=== PATIENT | male | born 1950 | race Caucasian/White ===

== ENCOUNTER 2019-12-17 13:35 | Emergency (ER) | payer MEDICAID, MEDICARE ==
[~2019-12-17] VITALS: Ht 170.2 cm; Wt 72.5 kg
[~2019-12-17 13:35] MED LIST: AMX500CIP PO; BETH25TA PO; CEFP250T2 PO; DOXY100C2 PO; HYDR1TAB8 OP; KCL20TCR PO; Lisinopril PO; METF500T8 PO; METH4TAB PO; MMT17NA NS; Metoclopramide Hcl PO; Tamsulosin Hcl PO
[2019-12-17] MEDS ORDERED: HYDROcodone/APAP 5 MG/325 MG (LORTAB) TAB PO ONE (13:45)
--- NOTE | 2019-12-17 13:47 | ED Fall/Injury ---
General Stated Complaint: FALL Source: patient, EMS Exam Limitations: no limitations History of Present Illness Date Seen by Provider: Dec 17, 2019 Time Seen by Provider: 13:42 Initial Comments To ER per EMS from home in [place]. He is wheelchair bound due to polio. He was being pushed in his wheelchair today, they encountered a curb which caused a sudden stop of the wheelchair and he fell forward out of the wheelchair complains of left ankle pain and bilateral knee pain. The left ankle became entangled in the wheelchair somehow twisting beneath him. Did not hit his head and denies any other pains or injury. Occurred: just prior to arrival Severity: moderate Injuries/Pain Location: lower extremity Context: other (fell) Loss of Consciousness: no loss of consciousness Modifying Factors: Worse With Movement Allergies and Home Medications Allergies Coded Allergies: aspirin (Verified Allergy, Unknown, 12/17/19) Home Medications Amoxicillin 500 Mg Cap, 500 MG PO TID Prescribed by: SAMIRA ARIAS on 10/10/141208 Bethanechol Chl 25 Mg Tab, 50 MG PO ACHS Prescribed by: SAMIRA ARIAS on 10/10/141208 Metformin Hcl 500 Mg Tab.sr.24h, 1 EACH PO BID WITH MEALS Prescribed by: SAMIRA ARIAS on 10/10/141208 Oxycodone HCl/Acetaminophen 1 Each Tablet, 1 TAB PO Q4H PRN for PAIN-MODERATE (5-7) Prescribed by: MAIKEL PAINTING on 12/17/19 1438 Potassium Chloride 20 Meq Tab, 20 MEQ PO BID Prescribed by: SAMIRA ARIAS on 10/10/141208 [Lisinopril] 10 MG TAB, 10 MG PO DAILY Prescribed by: SAMIRA ARIAS on 10/10/141208 [Metoclopramide Hcl] 10 MG TAB, 10 MG PO ACHS Prescribed by: SAMIRA ARIAS on 10/10/14 120 [Tamsulosin Hcl] 0.4 MG CAP, 0.4 MG PO DAILY@1800 Prescribed by: SAMIRA ARIAS on 10/10/141208 Patient Home Medication List Home Medication List Reviewed: Yes Review of Systems Review of Systems Constitutional: see HPI Eyes: No Symptoms Reported Ears, Nose, Mouth, Throat: no symptoms reported Respiratory: no symptoms reported Cardiovascular: no symptoms reported Genitourinary: no symptoms reported Musculoskeletal: see HPI, joint pain Skin: no symptoms reported Psychiatric/Neurological: No Symptoms Reported Past Mfvvncv-Etwoyl-Zudexh Hx Patient Social History Recent Foreign Travel: No Contact w/Someone Who Travel: No Immunizations Up To Date Date of Pneumonia Vaccine: Oct 10, 2014 Date of Influenza Vaccine: Oct 10, 2014 Past Medical History Orthopedic Hypertension Reproductive Disorders: No Diabetes, Non-Insulin dep Adverse Reaction/Blood Tranf: No Family Medical History Cervical cancer Physical Exam Vital Signs Vital Signs - First Documented 12/17/19 13:35 Temp 36.7 Pulse 77 Resp 20 B/P (MAP) 205/126 (152) Pulse Ox 100 O2 Delivery Room Air Capillary Refill : Height, Weight, BMI Height: 5'7.00" Weight: 188lbs. 6.0oz. 85.731120dc; BMI Method:Stated General Appearance: WD/WN, no apparent distress HEENT: PERRL/EOMI, normal ENT inspection Neck: non-tender, full range of motion Respiratory: no respiratory distress, no accessory muscle use Gastrointestinal: normal bowel sounds, non tender Extremities: No swelling; other (atrophy bilateral lower extremities) Neurologic/Psychiatric: alert, normal mood/affect, oriented x 3 Skin: normal color, warm/dry Stephanie Coma Score Best Eye Response: (4) Open Spontaneously Best Verbal Response: (5) Oriented Best Motor Response: (6) Obeys Commands [place] Total: 15 Progress/Results/Core Measures Results/Orders My Orders Orders - MAIKEL PAINTING APRN Hydrocodone/Apap 5/325 Tablet (Lortab 5 (12/17/19 13:45) Knee, 3 Views, Bilateral (12/17/19 13:39) Ankle, Left, 3 Views (12/17/19 13:39) Medications Given in ED Current Medications Medications Dose Ordered Sig/Tony Route Start Time Stop Time Status Last Admin Dose Admin Acetaminophen/ Hydrocodone Bitart 1 tab ONCE ONCE PO 12/17/19 13:45 12/17/19 13:46 DC 12/17/19 13:48 1 TAB Vital Signs/I&O 12/17/19 13:35 Temp 36.7 Pulse 77 Resp 20 B/P (MAP) 205/126 (152) Pulse Ox 100 O2 Delivery Room Air Diagnostic Imaging Diagonstic Imaging: Xray Comments NAME: SOLEDAD GILBERT MED REC#: [id number] PT STATUS: REG ER : 1950 PHYSICIAN: MAIKEL PAINTING APRN ADMIT DATE: 12/17/19/ER Draft Date of Exam:12/17/19 ANKLE, LEFT, 3 VIEWS INDICATION: Wheelchair bound. Injury with pain. FINDINGS: There is an acute appearing fracture of the distal tibia. In the oblique views it appears to extend through the articular surface where it was nondepressed and nondisplaced at the tibial plafond. The fracture is somewhat spiral in its morphology with its most cephalad component at the posterior cortex about 6.3 cm above the level of the articular surface. This patient's bones are profoundly osteoporotic. The distal fibula is intact. There are arthritic changes to the ankle, hind and visualized midfoot. No other fracture could be identified. IMPRESSION: A distal tibial fracture with suspicion for nondepressed intra-articular extension. No significant angulation. There is underlying severe osteoporosis which could obscure additional nondisplaced fractures, no other injury is apparent. Dictated on workstation # [id number] Dict: 12/17/19 143 Trans: 12/17/19 1442 [facility] [id number] Interpreted by: ROSA ALVARADO Electronically signed by: NAME: SOLEDAD GILBERT [facility] REC#: [id number] PT STATUS: REG ER : 1950 PHYSICIAN: MAIKEL PAINTING APRN ADMIT DATE: 12/17/19/ER Draft Date of Exam:12/17/19 KNEE, 3 VIEWS, BILATERAL INDICATION: Pain. COMPARISON: None available. TECHNIQUE: Six radiographs of the bilateral knees dated December 17, 2019. FINDINGS: Severe diffuse osseous demineralization. No acute fracture or dislocation. No destructive osseous process. Mild medial and lateral joint space narrowing is noted within the bilateral knees. No significant knee joint effusion. Scattered vascular calcifications. IMPRESSION: No acute fracture. Severe osseous demineralization felt to relate to nonweightbearing status. Dictated on workstation # [id number] Dict: 12/17/19 143 Trans: 12/17/19 143 [id number] Interpreted by: TIM MÉNDEZ MD Electronically signed by: Departure Communication (Admissions) Patient placed in a posterior short leg and stirrup style splint. This should be sufficient since he is nonweightbearing per baseline due to his polio. Impression Primary Impression: Tibia fracture Qualified Codes: S82.302A - Unspecified fracture of lower end of left tibia, initial encounter for closed fracture Disposition: HOME, SELF-CARE Condition: Stable Departure-Patient Inst. Decision time for Depature: 14:37 Referrals: NO,LOCAL PHYSICIAN (PCP) Primary Care Physician AKUA SURESH MD, MICHAEL P MD Patient Instructions: Ankle Fracture Add. Discharge Instructions: 1. Keep the splint on at all times until you follow up with orthopedics. As will be a couple of weeks. Take medication as directed. Follow-up with your doctor next week. Scripts Oxycodone HCl/Acetaminophen (Percocet 5-325 mg Tablet) 1 Each Tablet 1 TAB PO Q4H PRN for PAIN-MODERATE (5-7) MDD 6 TABS for 7 Days, #30 TAB Prov: MAIKEL PAINTING APRN 12/17/19 MAIKEL PAINTING APRN Dec 17, 2019 13:47
[2019-12-17] MEDS ORDERED: OXYC1TAB87 PO (14:38)
--- NOTE | 2019-12-17 14:40 | Diagnostic Imaging Report ---
INDICATION: Pain. COMPARISON: None available. TECHNIQUE: Six radiographs of the bilateral knees dated December 17, 2019. FINDINGS: Severe diffuse osseous demineralization. Slight cortical irregularity is noted involving the left distal femoral shaft though no definite discrete fracture plane is identified. Otherwise, No acute fracture or dislocation. No destructive osseous process. Mild medial and lateral joint space narrowing is noted within the bilateral knees. No significant knee joint effusion. Scattered vascular calcifications. IMPRESSION: Cortical irregularity associated with the distal left femoral shaft. This could relate to a chronic healed fracture deformity. No definitive fracture plane is identified; however, if pain is referable to the distal left femur, then dedicated radiographs of the left femur will be recommended as the cortical irregularity is not completely included within the [id number]-em-cdrg. Severe osseous demineralization felt to relate to nonweightbearing status. This severe osseous demineralization decreases the sensitivity for underlying fractures. Report was called to Oziel Guzmán APRN at 3:53 p.m., by josh (for BEATA). Dictated by: Dictated on workstation # [id number]
--- NOTE | 2019-12-17 14:42 | Diagnostic Imaging Report ---
INDICATION: Wheelchair bound. Injury with pain. FINDINGS: There is an acute appearing fracture of the distal tibia. In the oblique views it appears to extend through the articular surface where it was nondepressed and nondisplaced at the tibial plafond. The fracture is somewhat spiral in its morphology with its most cephalad component at the posterior cortex about 6.3 cm above the level of the articular surface. This patient's bones are profoundly osteoporotic. The distal fibula is intact. There are arthritic changes to the ankle, hind and visualized midfoot. No other fracture could be identified. IMPRESSION: A distal tibial fracture with suspicion for nondepressed intra-articular extension. No significant angulation. There is underlying severe osteoporosis which could obscure additional nondisplaced fractures, no other injury is apparent. Dictated by: Dictated on workstation # [id number]
[2019-12-17 15:24] VITALS: BP 184/120
== END 2019-12-17 15:24 | disposition home or self-care (01) ==
LOC: EDUNIT# 13:35 → ER 13:36
DX: S82.302A Unspecified fracture of lower end of left tibia, initial encounter for closed fracture (principal); E11.9 Type 2 diabetes mellitus without complications; I10 Essential (primary) hypertension; R40.2142 Coma scale, eyes open, spontaneous, at arrival to emergency department; R40.2252 Coma scale, best verbal response, oriented, at arrival to emergency department; R40.2362 Coma scale, best motor response, obeys commands, at arrival to emergency department; Z80.49 Family history of malignant neoplasm of other genital organs; Z99.3 Dependence on wheelchair; Z86.12 Personal history of poliomyelitis; Z88.6 Allergy status to analgesic agent; Z79.84 Long term (current) use of oral hypoglycemic drugs; V00.811A Fall from moving wheelchair (powered), initial encounter
CPT/HCPCS: 29515; 73610

== ENCOUNTER 2020-03-23 13:44 | Emergency (ER) | payer MEDICARE ==
[~2020-03-23] VITALS: Ht 167 cm; Wt 72.0 kg
[~2020-03-23 13:44] MED LIST changes: +CEFD300C3 PO; +LISI10TA2 PO; +OXYC1TAB87 PO; +TMSL.4C PO; +[UNRECOGNIZED DRUG - CODE] MC
--- NOTE | 2020-03-23 13:54 | ED Neurological Problem ---
General Stated Complaint: DIZZINESS Source: patient, EMS Exam Limitations: no limitations History of Present Illness Date Seen by Provider: Mar 23, 2020 Time Seen by Provider: 13:50 Initial Comments 69-year-old male presents because last night reports he had some slurred spaces now resolved. Patient feels that last night he had difficulty understanding his when she was visiting with him. Patient reports for the most part his symptoms have resolved. He does state that maybe is a little foggy this morning but no real focal complaints or concerns. Patient reports he had a recent urinary tract infection which she was treated for. Patient otherwise has no other recent illnesses, cough, nausea, vomiting, focal weakness. Patient does have paralysis of his lower extremities due to polio as a child Allergies and Home Medications Allergies Coded Allergies: aspirin (Verified Allergy, Unknown, 12/17/19) Home Medications Cefdinir 300 Mg Capsule, 300 MG PO BID Prescribed by: YURIY VALLE on 03/14/20 1316 Lisinopril 10 Mg Tablet, 10 MG PO DAILY Prescribed by: YURIY VALLE on 03/14/20 1316 Tamsulosin HCl 0.4 Mg Cap, 0.4 MG PO DAILY@1800 Prescribed by: YURIY VALLE on 03/14/20 1316 Patient Home Medication List Home Medication List Reviewed: Yes Review of Systems Review of Systems Constitutional: No chills, No fever Eyes: No Symptoms Reported Ears, Nose, Mouth, Throat: see HPI Respiratory: No cough, No short of breath Cardiovascular: No chest pain, No palpitations Gastrointestinal: no symptoms reported; No abdominal pain, No nausea, No vomiting Genitourinary: no symptoms reported Musculoskeletal: no symptoms reported Skin: no symptoms reported Psychiatric/Neurological: See HPI Past Bcmdrsg-Cboiou-Eecwei Hx Past Med/Social Hx: Reviewed Nursing Past Med/Soc Hx Patient Social History Drug of Choice: POT, AMPHETAMINES 2nd Hand Smoke Exposure: No Immunizations Up To Date Date of Pneumonia Vaccine: Oct 10, 2014 Date of Influenza Vaccine: Oct 10, 2014 Past Medical History Surgeries: Yes (HERNIA) Orthopedic Respiratory: No Cardiac: Yes Hypertension Neurological: No Reproductive Disorders: No Gastrointestinal: No Musculoskeletal: Yes (POLIO) Endocrine: Yes Diabetes, Non-Insulin dep Cancer: No Psychosocial: No Integumentary: No Blood Disorders: No Adverse Reaction/Blood Tranf: No Family Medical History Cervical cancer Physical Exam Vital Signs Vital Signs - First Documented 03/23/20 13:56 Temp 36.6 Pulse 73 Resp 18 B/P (MAP) 138/68 (91) Pulse Ox 100 O2 Delivery Room Air Capillary Refill : Height, Weight, BMI Height: 5'7.00" Weight: 188lbs. 6.0oz. 85.032936pl; 25.06 BMI Method:Stated General Appearance: WD/WN, no apparent distress HEENT: PERRL/EOMI Neck: full range of motion Respiratory: lungs clear, normal breath sounds Cardiovascular: normal peripheral pulses, regular rate, rhythm Gastrointestinal: non tender, soft Extremities: other (no acute changes) Neurologic/Psychiatric: alert, normal mood/affect, oriented x 3, other (patient with chronic bilateral lower extremity paralysis with no acute changes) Motor/Sensory: other (no acute weakness, no cerebellar deficits) Skin: normal color, warm/dry Progress/Results/Core Measures Results/Orders Lab Results Laboratory Tests Test 03/23/20 13:50 03/23/20 14:20 03/23/20 14:50 Range/Units White Blood Count 7.9 4.3-11.0 10^3/uL Red Blood Count 3.56 L 4.35-5.85 10^6/uL Hemoglobin 10.4 L 13.3-17.7 G/DL Hematocrit 33 L 40-54 % Mean Corpuscular Volume 92 80-99 FL Mean Corpuscular Hemoglobin 29 25-34 PG Mean Corpuscular Hemoglobin Concent 32 32-36 G/DL Red Cell Distribution Width 15.2 H 10.0-14.5 % Platelet Count 251 130-400 10^3/uL Mean Platelet Volume 9.2 7.4-10.4 FL Neutrophils (%) (Auto) 73 42-75 % Lymphocytes (%) (Auto) 18 12-44 % Monocytes (%) (Auto) 6 0-12 % Eosinophils (%) (Auto) 2 0-10 % Basophils (%) (Auto) 0 0-10 % Neutrophils # (Auto) 5.7 1.8-7.8 X 10^3 Lymphocytes # (Auto) 1.5 1.0-4.0 X 10^3 Monocytes # (Auto) 0.5 0.0-1.0 X 10^3 Eosinophils # (Auto) 0.2 0.0-0.3 10^3/uL Basophils # (Auto) 0.0 0.0-0.1 10^3/uL Prothrombin Time 13.3 12.2-14.7 SEC INR Comment 1.0 0.8-1.4 Activated Partial Thromboplast Time 32 24-35 SEC D-Dimer 0.79 H 0.00-0.49 UG/ML Sodium Level 139 135-145 MMOL/L Potassium Level 4.5 3.6-5.0 MMOL/L Chloride Level 111 H 98-107 MMOL/L Carbon Dioxide Level 19 L 21-32 MMOL/L Anion Gap 9 5-14 MMOL/L Blood Urea Nitrogen 39 H 7-18 MG/DL Creatinine 1.26 0.60-1.30 MG/DL Estimat Glomerular Filtration Rate 57 BUN/Creatinine Ratio 31 Glucose Level 133 H 70-105 MG/DL Calcium Level 8.2 L 8.5-10.1 MG/DL Corrected Calcium 8.4 L 8.5-10.1 MG/DL Total Bilirubin 0.1 0.1-1.0 MG/DL Aspartate Amino Transf (AST/SGOT) 17 5-34 U/L Alanine Aminotransferase (ALT/SGPT) 15 0-55 U/L Alkaline Phosphatase 90 40-136 U/L Troponin I < 0.028 <0.028 NG/ML Total Protein 7.3 6.4-8.2 GM/DL Albumin 3.8 3.2-4.5 GM/DL Urine Color YELLOW Urine Clarity CLEAR Urine pH 6.0 5-9 Urine Specific [place] 1.020 1.016-1.022 Urine Protein 1+ H NEGATIVE Urine Glucose (UA) TRACE H NEGATIVE Urine Ketones NEGATIVE NEGATIVE Urine Nitrite NEGATIVE NEGATIVE Urine Bilirubin NEGATIVE NEGATIVE Urine Urobilinogen 0.2 < = 1.0 MG/DL Urine Leukocyte Esterase NEGATIVE NEGATIVE Urine RBC (Auto) TRACE-I NEGATIVE Urine RBC 2-5 H /HPF Urine WBC 2-5 /HPF Urine Crystals PRESENT H /LPF Urine Amorphous Sediment RARE ANA URATES H /LPF Urine Bacteria NEGATIVE /HPF Urine Casts NONE /LPF Urine Mucus NEGATIVE /LPF Urine Culture Indicated NO Glucometer 131 H 70-110 MG/DL My Orders Orders - HARRISON,SHIRLEY L DO Cbc With Automated Diff (03/23/20 13:54) Protime With Inr (03/23/20 13:54) Partial Thromboplastin Time (03/23/20 13:54) Comprehensive Metabolic Panel (03/23/20 13:54) Fibrin Degradation Products (03/23/20 13:54) Troponin I (03/23/20 13:54) Ua Culture If Indicated (03/23/20 13:54) Chest 1 View, Ap/Pa Only (03/23/20 13:54) Ekg Tracing (03/23/20 13:54) Accucheck Stat ONCE (03/23/20 13:54) Ed Iv/Invasive Line Start (03/23/20 13:54) Vital Signs Stroke Patient Q15M (03/23/20 13:54) Ct Head Wo-R/O Stroke (03/23/20 13:54) O2 (03/23/20 13:54) Monitor-Rhythm Ecg Trace Only (03/23/20 13:54) Dysphagia Screening Tool (03/23/20 13:54) Lipid Panel (03/24/20 06:00) Vital Signs/I&O 03/23/20 03/23/20 03/23/20 13:56 14:51 14:52 Temp 36.6 Pulse 73 76 Resp 18 16 B/P (MAP) 138/68 (91) 138/88 Pulse Ox 100 99 99 O2 Delivery Room Air Room Air Diagnostic Imaging Diagonstic Imaging: CT Plain Films/CT/US/NM/MRI: head Comments [facility], [place] NAME: NADEEM GILBERT [facility] REC#: [id number] PT STATUS: REG ER : 1950 PHYSICIAN: SHIRLEY HARRISON DO ADMIT DATE: 03/23/20/ER Draft Date of Exam:03/23/20 CT HEAD WO-R/O STROKE PROCEDURE: CT head wo r/o stroke. TECHNIQUE: Multiple contiguous axial images were obtained through the brain without the use of intravenous contrast. Auto Exposure Controls were utilized during the CT exam to meet ALARA standards for radiation dose reduction. INDICATION: Confusion with slurred speech, symptoms have resolved. COMPARISON: I have no previous for direct comparison. FINDINGS: There is encephalomalacia consistent with an old infarct in the right temporal lobe anteroinferiorly. No sulcal effacement. No findings suggestive of cerebral edema. There is mild cerebral cortical atrophy without nadeem hydrocephalus. There is periventricular white matter hypodensity nonspecific but typically associated with the sequelae of chronic small vessel disease. There are intracranial atherosclerotic vascular calcifications involving the carotids greater than vertebrobasilar. No evidence for elevated intracerebral pressures. There is no hemorrhage. 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 Atrophy and white matter disease as well as atherosclerosis, but no hemorrhage, edema, or acute-appearing abnormalities Departure Impression Primary Impression: Transient disorientation Disposition: 01 HOME, SELF-CARE Condition: Stable Departure-Patient Inst. Referrals: NO,LOCAL PHYSICIAN (PCP/Family) Primary Care Physician Patient Instructions: Delirium (Confusion) Add. Discharge Instructions: Emergency department focuses on treating and ruling out life-threatening diseases. Whenever possible, a diagnosis is given. However, most patients are given an impression based on their history, physical exam, and workup during your brief time in the ER. Information about probable diagnosis and other educational material has been provided. Please take the time to read and understand this information. It is very important that you follow up with a physician as discussed during the visit today. Failure to adhere to your follow-up instructions may lead to severe disability, injury, or so please make sure to keep your appointments or obtain one as requested. Please keep in mind the emergency department is not designed to your primary care or "family doctor" and nonurgent issues are best evaluated by an outpatient physician SHIRLEY HARRISON DO Mar 23, 2020 13:54
[2020-03-23 14:02] LABS: BASOPHILS % (AUTO) 0 % (0-10); EOSINOPHILS # (AUTO) 0.2 10^3/uL (0.0-0.3); EOSINOPHILS % (AUTO) 2 % (0-10); HEMATOCRIT 33 % (40-54); HEMOGLOBIN 10.4 G/DL (13.3-17.7); LYMPHOCYTES # (AUTO) 1.5 X 10^3 (1.0-4.0); LYMPHOCYTES % (AUTO) 18 % (12-44); MEAN CORPUSCULAR HEMOGLOBIN 29 PG (25-34); MEAN CORPUSCULAR HGB CONC 32 G/DL (32-36); MEAN CORPUSCULAR VOLUME 92 FL (80-99); MEAN PLATELET VOLUME 9.2 FL (7.4-10.4); MONOCYTES # (AUTO) 0.5 X 10^3 (0.0-1.0); MONOCYTES % (AUTO) 6 % (0-12); NEUTROPHILS # (AUTO) 5.7 X 10^3 (1.8-7.8); NEUTROPHILS % (AUTO) 73 % (42-75); PLATELET COUNT 251 10^3/uL (130-400); RED CELL DISTRIBUTION WIDTH 15.2 % (10.0-14.5); WHITE BLOOD COUNT 7.9 10^3/uL (4.3-11.0)
[2020-03-23 14:09] LABS: ALBUMIN 3.8 GM/DL (3.2-4.5); CHLORIDE 111 MMOL/L (98-107); POTASSIUM 4.5 MMOL/L (3.6-5.0); SODIUM 139 MMOL/L (135-145)
[2020-03-23 14:10] LABS: CALCIUM 8.2 MG/DL (8.5-10.1)
[2020-03-23 14:11] LABS: GLUCOSE 133 MG/DL (70-105)
[2020-03-23 14:12] LABS: TOTAL PROTEIN 7.3 GM/DL (6.4-8.2)
[2020-03-23 14:13] LABS: BILIRUBIN,TOTAL 0.1 MG/DL (0.1-1.0); CARBON DIOXIDE 19 MMOL/L (21-32)
[2020-03-23 14:15] LABS: ALKALINE PHOSPHATASE 90 U/L (40-136); CREATININE SERUM 1.26 MG/DL (0.60-1.30); GFR ESTIMATED 57
[2020-03-23 14:16] LABS: BUN/CREATININE RATIO 31
[2020-03-23 14:18] LABS: ALANINE AMINOTRANSFERASE 15 U/L (0-55)
[2020-03-23 14:28] LABS: BILIRUBIN,URINE NEGATIVE (NEGATIVE); CLARITY,URINE CLEAR; COLOR,URINE YELLOW; GLUCOSE, URINE (UA) TRACE (NEGATIVE); KETONES,URINE NEGATIVE (NEGATIVE); LEUKOCYTE ESTERASE ,URINE NEGATIVE (NEGATIVE); NITRITE,URINE NEGATIVE (NEGATIVE); PROTEIN,URINE 1+ (NEGATIVE)
[2020-03-23 14:43] LABS: FIBRIN DEGRADATION PRODUCTS 0.79 UG/ML (0.00-0.49); PROTHROMBIN TIME PATIENT 13.3 SEC (12.2-14.7)
[2020-03-23 14:51] VITALS: BP 138/88
--- NOTE | 2020-03-23 14:53 | Diagnostic Imaging Report ---
INDICATION: Confusion, slurred speech COMPARISON: 03/10/2020 TECHNIQUE: Single radiograph of the chest dated 03/23/2020. FINDINGS: The cardiac silhouette is enlarged, though stable. No significant pulmonary vascular congestion. The lungs are hyperinflated with flattening of the diaphragm. The lungs are clear of focal pulmonary opacity. No pleural effusion. No pneumothorax. Severe apex right curvature of the spine is noted. IMPRESSION: Cardiomegaly without overt congestive heart failure. 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 Dictated by: Dictated on workstation # [id number]
--- NOTE | 2020-03-23 15:02 | Diagnostic Imaging Report ---
PROCEDURE: CT head wo r/o stroke. TECHNIQUE: Multiple contiguous axial images were obtained through the brain without the use of intravenous contrast. Auto Exposure Controls were utilized during the CT exam to meet ALARA standards for radiation dose reduction. INDICATION: Confusion with slurred speech, symptoms have resolved. COMPARISON: I have no previous for direct comparison. FINDINGS: There is encephalomalacia consistent with an old infarct in the right temporal lobe anteroinferiorly. No sulcal effacement. No findings suggestive of cerebral edema. There is mild cerebral cortical atrophy without nadeem hydrocephalus. There is periventricular white matter hypodensity nonspecific but typically associated with the sequelae of chronic small vessel disease. There are intracranial atherosclerotic vascular calcifications involving the carotids greater than vertebrobasilar. No evidence for elevated intracerebral pressures. There is no hemorrhage. 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 Atrophy and white matter disease as well as atherosclerosis, but no hemorrhage, edema, or acute-appearing abnormalities. Dictated by: Dictated on workstation # [id number]
[2020-03-23 15:18] LABS: BACTERIA,URINE NEGATIVE /HPF
[2020-03-23 15:19] LABS: AMORPHOUS SEDIMENT,UR RARE AMOR URATES /LPF
[2020-03-23 15:26] VITALS: BP 138/86
[2020-03-23 15:46] VITALS: BP 121/68
--- OUTSIDE RECORDS SUMMARY | 2020-03-23 16:48 | XMS REPORT | Continuity of Care Document ---
Author Organization Unknown Address Unknown Phone Unavailable Allergies Active Description Code Type Severity Reaction Onset Reported/Identified Relationship to Patient Clinical Status Yes No Known Drug Allergies [id number] Drug Allergy Unknown N/A 03/27/2011 Yes aspirin [id number] Drug Allergy Unknown N/A 12/17/2019 Medications There is no data. Problems Date Dx Coded Attending Type Code Diagnosis Diagnosed By 04/21/2008 PERRY ESPINOSA APRN 847.0 SPRAIN/STRAIN NECK 04/21/2008 EDMUND GONZALEZ MD 847.0 SPRAIN/STRAIN NECK 04/21/2008 SAMIRA ARIAS DO 847.0 SPRAIN/STRAIN NECK 06/03/2008 PERRY ESPINOSA APRN 250.00 DIABETES II CONTROLLED 06/03/2008 PERRY ESPINOSA APRN 723.1 PAIN NECK 06/03/2008 EDMUND GONZALEZ MD 250.0 0 DIABETES II CONTROLLED 06/03/2008 EDMUND GONZALEZ MD 723.1 PAIN NECK 06/03/2008 SAMIRA ARIAS DO 250.00 DIABETES II CONTROLLED 06/03/2008 SAMIRA ARIAS DO 723.1 PAIN NECK 10/06/2014 DIYA BROWN MD Ot 138 10/06/2014 DIYA BROWN MD Ot 250.62 10/06/2014 DIYA BROWN MD N Ot 305.70 10/06/2014 DIYA BROWN MD Ot 401 .9 10/06/2014 DIYA BROWN MD Ot 530.81 10/06/2014 DIYA BROWN MD Ot 536 .3 10/06/2014 DIYA BROWN MD Ot 560 .9 10/06/2014 DIYA BROWN MD Ot 591 10/06/2014 DIYA BROWN MD Ot 596.54 10/06/2014 DIYA BROWN MD N Ot 788.30 10/06/2014 STEPHANIE MD, DIYA N Ot V15.81 10/07/2014 STEPHANIE GARCIA, DIYA N Ot 138 10/07/2014 STEPHANIE GARCIA, DIYA N Ot 250.62 10/07/2014 STEPHANIE GARCIA, DIYA N Ot 305.70 10/07/2014 STEPHANIE GARCIA, DIYA N Ot 401 .9 10/07/2014 STEPHANIE GARCIA, DIYA N Ot 530.81 10/07/2014 STEPHANIE GARCIA, DIYA N Ot 536 .3 10/07/2014 STEPHANIE GARCIA, DIYA N Ot 560 .9 10/07/2014 STEPHANIE GARCIA, DIYA N Ot 591 10/07/2014 STEPHANIE GARCIA, DIYA N Ot 596.54 10/07/2014 STEPHANIE GARCIA, DIYA N Ot 788.30 10/07/2014 STEPHANIE GARCIA, DIYA N Ot V15.81 10/08/2014 STEPHANIE GARCIA, DIYA N Ot 138 10/08/2014 STEPHANIE GARCIA, DIYA N Ot 250.62 10/08/2014 STEPHANIE GARCIA, DIYA N Ot 305.70 10/08/2014 STEPHANIE GARCIA, DIYA N Ot 401 .9 10/08/2014 STEPHANIE GARCIA, DIYA N Ot 530.81 10/08/2014 STEPHANIE GARCIA, DIYA N Ot 536 .3 10/08/2014 STEPHANIE GARCIA, DIYA N Ot 560 .9 10/08/2014 STEPHANIE GARCIA, DIYA N Ot 591 10/08/2014 STEPHANIE GARCIA, DIYA N Ot 596.54 10/08/2014 STEPHANIE GARCIA, DIYA N Ot 788.30 10/08/2014 STEPHANIE GARCIA, DIYA N Ot V15.81 10/09/2014 STEPHANIE GARCIA, DIYA N Ot 138 10/09/2014 STEPHANIE GARCIA, DIYA N Ot 250.62 10/09/2014 STEPHANIE GARCIA, DIYA N Ot 305.70 10/09/2014 STEPHANIE GARCIA, DIYA N Ot 401 .9 10/09/2014 STEPHANIE GARCIA, DIYA N Ot 530.81 10/09/2014 STEPHANIE GARCIA, DIYA N Ot 536 .3 10/09/2014 STEPHANIE MD, DIYA N Ot 560 .9 10/09/2014 DIYA BROWN MD Ot 591 10/09/2014 DIYA BROWN MD Ot 596.54 10/09/2014 DIYA BROWN MD N Ot 788.30 10/09/2014 DIYA BROWN MD N Ot V15.81 10/10/2014 DIYA BROWN MD N Ot 138 10/10/2014 DIYA BROWN MD N Ot 250.62 10/10/2014 DIYA BROWN MD N Ot 305.70 10/10/2014 DIYA BROWN MD Ot 401 .9 10/10/2014 DIYA BROWN MD Ot 530.81 10/10/2014 DIYA BROWN MD Ot 536 .3 10/10/2014 DIYA BROWN MD Ot 560 .9 10/10/2014 DIYA BROWN MD Ot 591 10/10/2014 DIYA BROWN MD Ot 596.54 10/10/2014 DIYA BROWN MD N Ot 788.30 10/10/2014 DIYA BROWN MD Ot V15.81 10/10/2014 DIYA BROWN MD Ot 041.04 STREPTOCOCCUS INFECTION NOS, GROUP D (EN 10/10/2014 DIYA BROWN MD N Ot 041.49 OTHER AND UNSPECIFIED ESCHERICHIA COLI [ 10/10/2014 DIYA BROWN MD N Ot 138 LATE EFFECT ACUTE POLIO 10/10/2014 DIYA BROWN MD N Ot 250.62 DIAB W NEURO MANIFEST, TYPE II OR UNSPEC 10/10/2014 DIYA BROWN MD N Ot 305.70 AMPHETAMINE ABUSE-UNSPEC 10/10/2014 DIYA BROWN MD N Ot 401 .9 HYPERTENSION NOS 10/10/2014 DIYA BROWN MD N Ot 530.81 ESOPHAGEAL REFLUX 10/10/2014 DIYA BROWN MD N Ot 536 .3 GASTROPARESIS 10/10/2014 DIYA BROWN MD N Ot 560 .9 INTESTINAL OBSTRUCT NOS 10/10/2014 DIYA BROWN MD N Ot 591 HYDRONEPHROSIS 10/10/2014 DIYA BROWN MD N Ot 596.54 NEUROGENIC BLADDER, NOT OTHERWISE SPECIF 10/10/2014 DIYA BROWN MD Ot 599 .0 URIN TRACT INFECTION NOS 10/10/2014 DIYA BROWN MD Ot 600.01 HYPERTROPHY (BENIGN) OF PROSTATE W URINA 10/10/2014 DIYA BROWN MD Ot 788.20 RETENTION OF URINE NOS 10/10/2014 DIYA BROWN MD Ot 788.30 10/10/2014 DIYA BROWN MD Ot V15.81 HX OF PAST NONCOMPLIANCE 10/18/2014 EDMUND GONZALEZ MD 276.8 HYPOPOTASSEMIA 10/18/2014 EDMUND GONZALEZ MD 536.3 GASTROPARESIS 10/18/2014 EDMUND GONZALEZ MD 788.2 0 RETENTION OF URINE UNSPECIFIED 10/18/2014 JUANA CEJA SAMIRA K 276.8 HYPOPOTASSEMIA 10/18/2014 ARIAS DO SAMIRA K 536.3 GASTROPARESIS 10/18/2014 ARIAS DO SAMIRA K 788.20 RETENTION OF URINE UNSPECIFIED 12/17/2019 MAIKEL PAINTING APRN Ot E11 .9 TYPE 2 DIABETES MELLITUS WITHOUT COMPLIC 12/17/2019 MAIKEL PAINTING APRN Ot I10 ESSENTIAL (PRIMARY) HYPERTENSION 12/17/2019 MAIKEL PAINTING APRN Ot M79.662 PAIN IN LEFT LOWER LEG 12/17/2019 MAIKEL PAINTING APRN Ot R40.2142 COMA SCALE, EYES OPEN, SPONTANEOUS, EMR 12/17/2019 MAIKEL PAINTING APRN Ot R40.2252 COMA SCALE, BEST VERBAL RESPONSE, ORIENT 12/17/2019 MAIKEL PAINTING APRN Ot R40.2362 COMA SCALE, BEST MOTOR RESPONSE, OBEYS C 12/17/2019 MAIKEL PAINTING APRN Ot S82.302A UNSP FRACTURE OF LOWER END OF LEFT TIBIA 12/17/2019 MAIKEL PAINTING APRN Ot V00.811A FALL FROM MOVING WHEELCHAIR (POWERED), I 12/17/2019 MAIKEL PAINTING APRN Ot Z79.84 NURSING HOME (CURRENT) USE OF ORAL HYPOGLYC 12/17/2019 MAIKEL PAINTING APRN Ot Z80.49 FAMILY HISTORY OF MALIGNANT NEOPLASM OF 12/17/2019 PAINTING, PETER J [employer] Ot Z86.12 PERSONAL HISTORY OF POLIOMYELITIS 12/17/2019 MAIKEL PAINTING APRN Ot Z88 .6 ALLERGY STATUS TO ANALGESIC AGENT STATUS 12/17/2019 MAIKEL PAINTING APRN Ot Z99 .3 DEPENDENCE ON WHEELCHAIR 12/20/2019 MAIKEL PAINTING APRN Ot E11 .9 TYPE 2 DIABETES MELLITUS WITHOUT COMPLIC 12/20/2019 MAIKEL PAINTING APRN Ot I10 ESSENTIAL (PRIMARY) HYPERTENSION 12/20/2019 MAIEKL PAINTING APRN Ot M79.662 PAIN IN LEFT LOWER LEG 12/20/2019 MAIKEL PAINTING APRN Ot R40.2142 COMA SCALE, EYES OPEN, SPONTANEOUS, EMR 12/20/2019 MAIKEL PAINTING APRN Ot R40.2252 COMA SCALE, BEST VERBAL RESPONSE, ORIENT 12/20/2019 MAIKEL PAINTING APRN Ot R40.2362 COMA SCALE, BEST MOTOR RESPONSE, OBEYS C 12/20/2019 MAIKEL PAINTING APRN Ot S82.302A UNSP FRACTURE OF LOWER END OF LEFT TIBIA 12/20/2019 MAIKEL PAINTING APRN Ot V00.811A FALL FROM MOVING WHEELCHAIR (POWERED), I 12/20/2019 MAIKEL PAINTING APRN Ot Z79.84 NURSING HOME (CURRENT) USE OF ORAL HYPOGLYC 12/20/2019 MAIKEL PAINTING APRN Ot Z80.49 FAMILY HISTORY OF MALIGNANT NEOPLASM OF 12/20/2019 MAIKEL PAINTING APRN Ot Z86.12 PERSONAL HISTORY OF POLIOMYELITIS 12/20/2019 MAIKEL PAINTING APRN Ot Z88 .6 ALLERGY STATUS TO ANALGESIC AGENT STATUS 12/20/2019 MAIKEL PAINTING APRN Ot Z99 .3 DEPENDENCE ON WHEELCHAIR 03/14/2020 LEONARD GARCIA, YURIY Ramesh Ot A41. 9 SEPSIS, UNSPECIFIED ORGANISM 03/14/2020 YURIY VALLE MD Ot B37. 49 OTHER UROGENITAL CANDIDIASIS 03/14/2020 YURIY VALLE MD Ot E11. 9 TYPE 2 DIABETES MELLITUS WITHOUT COMPLIC 03/14/2020 YURIY VALLE MD Ot G14 POSTPOLIO SYNDROME 03/14/2020 YURIY VALLE MD Ot G81. 90 HEMIPLEGIA, UNSPECIFIED AFFECTING UNSPEC 03/14/2020 YURIY VALLE MD Ot K59. 00 CONSTIPATION, UNSPECIFIED 03/14/2020 YURIY VALLE MD Ot M62. 59 MUSCLE WASTING AND ATROPHY, NEC, MULTIPL 03/14/2020 YURIY VALLE MD Ot N28. 9 DISORDER OF KIDNEY AND URETER, UNSPECIFI 03/14/2020 YURIY VALLE MD Ot N30. 01 ACUTE CYSTITIS WITH HEMATURIA 03/14/2020 YURIY VALLE MD Ot N31. 9 NEUROMUSCULAR DYSFUNCTION OF BLADDER, UN 03/14/2020 YURIY VALLE MD Ot Z79. 84 NURSING HOME (CURRENT) USE OF ORAL HYPOGLYC 03/14/2020 YURIY VALLE MD Ot Z91. 19 PATIENT'S NONCOMPLIANCE W [facility] 03/14/2020 YURIY VALLE MD Ot Z99. 3 DEPENDENCE ON WHEELCHAIR 03/14/2020 YURIY VALLE MD Ot A41. 9 SEPSIS, UNSPECIFIED ORGANISM 03/14/2020 YURIY VALLE MD Ot B37. 49 OTHER UROGENITAL CANDIDIASIS 03/14/2020 YURIY VALLE MD Ot E11. 9 TYPE 2 DIABETES MELLITUS WITHOUT COMPLIC 03/14/2020 YURIY VALLE MD Ot G14 POSTPOLIO SYNDROME 03/14/2020 YURIY VALLE MD Ot G81. 90 HEMIPLEGIA, UNSPECIFIED AFFECTING UNSPEC 03/14/2020 YURIY VALLE MD Ot K59. 00 CONSTIPATION, UNSPECIFIED 03/14/2020 YURIY VALLE MD Ot L89.159 PRESSURE ULCER OF SACRAL REGION, UNSPECI 03/14/2020 YURIY VALLE MD Ot M62. 59 MUSCLE WASTING AND ATROPHY, NEC, MULTIPL 03/14/2020 YURIY VALLE MD Ot N28. 9 DISORDER OF KIDNEY AND URETER, UNSPECIFI 03/14/2020 YURIY VALLE MD Ot N30. 01 ACUTE CYSTITIS WITH HEMATURIA 03/14/2020 YURIY VALLE MD Ot N31. 9 NEUROMUSCULAR DYSFUNCTION OF BLADDER, UN 03/14/2020 YURIY VALLE MD Ot N39. 0 URINARY TRACT INFECTION, SITE NOT SPECIF 03/14/2020 YURIY AVLLE MD Ot Z79. 84 NURSING HOME (CURRENT) USE OF ORAL HYPOGLYC 03/14/2020 YURIY VALLE MD Ot Z91. 19 PATIENT'S NONCOMPLIANCE W [facility] 03/14/2020 LEONARD GARCIA, YURIY Ramesh Ot Z99. 3 DEPENDENCE ON WHEELCHAIR Procedures Code Description Performed By Per formed On 57.32 CYST OSCOPY NEC 10/07/20149527190 GF R CALC (RESULT ONLY) 10/18/2014 56935 BMP 10/18/2014 Results Test Result Range Complete urinalysis with reflex to cultu re - 03/10/20 18:21 Urine color determination YELLOW NRG Urine clarity determination CLOUDY NR G Urine pH measurement by test strip 8 5-9 Specific gravity of urine by test strip 1.010 1.016-1.022 Urine protein assay by test strip, semi-quantitative 3+ NEGATIVE Urine glucose detection by automated test strip NE GATIVE NEGATIVE Erythrocytes detection in urine sediment by light micr oscopy 3+ NEGATIVE Urine ketones detection by automated test strip TR MARICRUZ NEGATIVE Urine nitrite detection by test strip NEGATIVE NEGATIVE Urine total bilirubin detection by test strip NEGA TIVE NEGATIVE Urine urobilinogen measurement by automated test strip (mass/volume) 0.2 mg/dL < = 1.0 Urine leukocyte esterase detection by dipstick 2+ NEGATIVE Automated urine sediment erythrocyte cou nt by microscopy (number/high power field) [HPF] NRG Automated urine sediment leukocyte count by microscopy (number/high power field) [HPF] NRG Bacteria detection in urine sediment by light microsco py LARGE NRG Squamous epithelial cells detection in u rine sediment by light microscopy 0-2 NRG Crystals detection in urine sediment by light microsco py PRESENT NRG Casts detection in urine sediment by light microscopy NONE NRG Mucus detection in urine sediment by light microscopy NEGATIVE NRG Complete urinalysis with reflex to culture CULTURE PENDING NRG Triple phosphate crystals detection in u rine sediment by light microscopy FEW NRG Bacterial urine culture - 03/10/20 18:21 Bacterial urine culture [id number] NRG COLONY COUNT >100,000/ML NRG SUSCEPTIBILITY SUSCEPTIBILITY REPORTED 03/12 11:20 NRG RAPID ID PRELIM RAPID ID TEST AT [facility] 03/11 08:00 NRG ID CONFIRMATION RML CONFIRMED ID 03/12 06:05 NRG Dirithromycin susceptibility test by dis k diffusion - 03/10/20 18:21 Gentamicin susceptibility test by minimum inhibitory c oncentration <= NRG Trimethoprim/sulfamethoxazole susceptibi lity test by minimum inhibitoryconcentration <= NRG Levofloxacin susceptibility test by minimum inhibitory concentration > NRG Ampicillin susceptibility test by minimum inhibitory c oncentration <= NRG Cefazolin susceptibility test by minimum inhibitory co ncentration <= NRG Ceftriaxone susceptibility test by minimum inhibitory concentration <= NRG Ciprofloxacin susceptibility test by minimum inhibitor y concentration > NRG Meropenem susceptibility test by minimum inhibitory co ncentration <= NRG Nitrofurantoin susceptibility test by mi nimum inhibitory concentration <= NRG Amoxicillin and clavulanate potassium susc NEELA <= NRG Complete blood count (CBC) with automate d white blood cell (WBC) differential - 03/10/20 18:51 Blood leukocytes automated count (number/volume) 7.0 10*3/uL 4.3-11.0 Blood erythrocytes automated count (number/volume) 4.30 10*6/uL 4.35-5.85 Venous blood hemoglobin measurement (mass/volume) 12.3 g/dL 13.3-17.7 Blood hematocrit (volume fraction) 37 % 40-54 Automated erythrocyte mean corpuscular volume 86 [ foz_us] 80-99 Automated erythrocyte mean corpuscular h emoglobin (mass per erythrocyte) 29 pg 25-34 Automated erythrocyte mean corpuscular h emoglobin concentration measurement (mass/volume) 33 g/dL 32-36 Automated erythrocyte distribution width ratio 14. 6 % 10.0- 14.5 Automated blood platelet count (count/volume) 371 10*3/uL 130-400 Automated blood platelet mean volume measurement 8.8 [foz_us] 7.4-10.4 Automated blood neutrophils/100 leukocytes 65 % 42-75 Automated blood lymphocytes/100 leukocytes 20 % 12-44 Blood monocytes/100 leukocytes 12 % 0-12 Automated blood eosinophils/100 leukocytes 3 % 0-10 Automated blood basophils/100 leukocytes 0 % 0-10 Blood neutrophils automated count (number/volume) 4.6 10*3 1.8-7.8 Blood lymphocytes automated count (number/volume) 1.4 10*3 1.0-4.0 Blood monocytes automated count (number/volume) 0. 8 10*3 0.0-1.0 Automated eosinophil count 0.2 10*3/uL 0 .0-0.3 Automated blood basophil count (count/volume) 0.0 10*3/uL 0.0-0.1 Comprehensive metabolic panel - 03/10/20 18:51 Serum or plasma sodium measurement (moles/volume) 134 mmol/L 135-145 Serum or plasma potassium measurement (moles/volume) 3.9 mmol/L 3.6-5.0 Serum or plasma chloride measurement (moles/volume) 109 mmol/L 98-107 Carbon dioxide 13 mmol/L 21-32 Serum or plasma anion gap determination (moles/volume) 12 mmol/L 5-14 Serum or plasma urea nitrogen measurement (mass/volume ) 63 mg/dL 7-18 Serum or plasma creatinine measurement (mass/volume) 1.69 mg/dL 0.60-1.30 Serum or plasma urea nitrogen/creatinine mass ratio 37 NRG Serum or plasma creatinine measurement w ith calculation of estimated glomerular filtration rate 41 NRG Serum or plasma glucose measurement (mass/volume) 116 mg/dL 70-105 Serum or plasma calcium measurement (mass/volume) 8.7 mg/dL 8.5-10.1 Serum or plasma total bilirubin measurement (mass/volu me) 0.4 mg/dL 0.1-1.0 Serum or plasma alkaline phosphatase matthew surement (enzymatic activity/volume) 100 U/L 40-136 Serum or plasma aspartate aminotransfera se measurement (enzymatic activity/volume) 13 U/L 5-34 Serum or plasma alanine aminotransferase measurement (enzymatic activity/volume) 12 U/L 0-55 Serum or plasma protein measurement (mass/volume) 7.9 g/dL 6.4-8.2 Serum or plasma albumin measurement (mass/volume) 3.8 g/dL 3.2-4.5 CALCIUM CORRECTED 8.9 mg/dL 8.5-10.1 PT panel in platelet poor plasma by coag ulation assay - 03/10/20 18:51 Prothrombin time (PT) in platelet poor plasma by coagu lation assay 14.3 s 12.2-14.7 INR in platelet poor plasma or blood by coagulation as say 1.1 0.8-1.4 Activated partial thromboplastin time (a PTT) in platelet poor plasma bycoagulation assay - 03/10/20 18:51 Activated partial thromboplastin time (a PTT) in platelet poor plasma bycoagulation assay 39 s 24-35 Blood lactic acid measurement (moles/vol ume) - 03/10/20 18:56 Blood lactic acid measurement (moles/volume) 0.74 mmol/L 0.50-2.00 Bacterial blood culture - 03/10/20 18:56 Bacterial blood culture NG NR Bacterial blood culture - 03/10/20 19:00 Bacterial blood culture NG [facility] Complete blood count (CBC) with automate d white blood cell (WBC) differential - 03/11/20 05:54 Blood leukocytes automated count (number/volume) 4.8 10*3/uL 4.3-11.0 Blood erythrocytes automated count (number/volume) 4.04 10*6/uL 4.35-5.85 Venous blood hemoglobin measurement (mass/volume) 11.4 g/dL 13.3-17.7 Blood hematocrit (volume fraction) 35 % 40-54 Automated erythrocyte mean corpuscular volume 87 [ foz_us] 80-99 Automated erythrocyte mean corpuscular h emoglobin (mass per erythrocyte) 28 pg 25-34 Automated erythrocyte mean corpuscular h emoglobin concentration measurement (mass/volume) 32 g/dL 32-36 Automated erythrocyte distribution width ratio 14. 5 % 10.0- 14.5 Automated blood platelet count (count/volume) 324 10*3/uL 130-400 Automated blood platelet mean volume measurement 9.7 [foz_us] 7.4-10.4 Automated blood neutrophils/100 leukocytes 60 % 42-75 Automated blood lymphocytes/100 leukocytes 21 % 12-44 Blood monocytes/100 leukocytes 14 % 0-12 Automated blood eosinophils/100 leukocytes 4 % 0-10 Automated blood basophils/100 leukocytes 0 % 0-10 Blood neutrophils automated count (number/volume) 2.9 10*3 1.8-7.8 Blood lymphocytes automated count (number/volume) 1.0 10*3 1.0-4.0 Blood monocytes automated count (number/volume) 0. 7 10*3 0.0-1.0 Automated eosinophil count 0.2 10*3/uL 0 .0-0.3 Automated blood basophil count (count/volume) 0.0 10*3/uL 0.0-0.1 Comprehensive metabolic panel - 03/11/20 05:54 Serum or plasma sodium measurement (moles/volume) 139 mmol/L 135-145 Serum or plasma potassium measurement (moles/volume) 4.5 mmol/L 3.6-5.0 Serum or plasma chloride measurement (moles/volume) 113 mmol/L 98-107 Carbon dioxide 14 mmol/L 21-32 Serum or plasma anion gap determination (moles/volume) 12 mmol/L 5-14 Serum or plasma urea nitrogen measurement (mass/volume ) 59 mg/dL 7-18 Serum or plasma creatinine measurement (mass/volume) 1.55 mg/dL 0.60-1.30 Serum or plasma urea nitrogen/creatinine mass ratio 38 NRG Serum or plasma creatinine measurement w ith calculation of estimated glomerular filtration rate 45 NRG Serum or plasma glucose measurement (mass/volume) 100 mg/dL 70-105 Serum or plasma calcium measurement (mass/volume) 8.3 mg/dL 8.5-10.1 Serum or plasma total bilirubin measurement (mass/volu me) 0.3 mg/dL 0.1-1.0 Serum or plasma alkaline phosphatase matthew surement (enzymatic activity/volume) 89 U/L 40-136 Serum or plasma aspartate aminotransfera se measurement (enzymatic activity/volume) 13 U/L 5-34 Serum or plasma alanine aminotransferase measurement (enzymatic activity/volume) 10 U/L 0-55 Serum or plasma protein measurement (mass/volume) 7.4 g/dL 6.4-8.2 Serum or plasma albumin measurement (mass/volume) 3.5 g/dL 3.2-4.5 CALCIUM CORRECTED 8.7 mg/dL 8.5-10.1 Capillary blood glucose measurement by g lucometer (mass/volume) - 03/11/20 12:24 Capillary blood glucose measurement by glucometer (mas s/volume) 131 mg/dL 70-110 Capillary blood glucose measurement by g lucometer (mass/volume) - 03/11/20 15:43 Capillary blood glucose measurement by glucometer (mas s/volume) 214 mg/dL 70-110 Capillary blood glucose measurement by g lucometer (mass/volume) - 03/11/20 20:27 Capillary blood glucose measurement by glucometer (mas s/volume) 135 mg/dL 70-110 Capillary blood glucose measurement by g lucometer (mass/volume) - 03/12/20 11:06 Capillary blood glucose measurement by glucometer (mas s/volume) 145 mg/dL 70-110 Capillary blood glucose measurement by g lucometer (mass/volume) - 03/12/20 15:40 Capillary blood glucose measurement by glucometer (mas s/volume) 130 mg/dL 70-110 Capillary blood glucose measurement by g lucometer (mass/volume) - 03/12/20 20:25 Capillary blood glucose measurement by glucometer (mas s/volume) 144 mg/dL 70-110 Capillary blood glucose measurement by g lucometer (mass/volume) - 03/13/20 06:50 Capillary blood glucose measurement by glucometer (mas s/volume) 105 mg/dL 70-110 Capillary blood glucose measurement by g lucometer (mass/volume) - 03/13/20 11:11 Capillary blood glucose measurement by glucometer (mas s/volume) 129 mg/dL 70-110 Capillary blood glucose measurement by g lucometer (mass/volume) - 03/13/20 16:03 Capillary blood glucose measurement by glucometer (mas s/volume) 117 mg/dL 70-110 Capillary blood glucose measurement by g lucometer (mass/volume) - 03/13/20 20:47 Capillary blood glucose measurement by glucometer (mas s/volume) 174 mg/dL 70-110 Capillary blood glucose measurement by g lucometer (mass/volume) - 03/14/20 06:13 Capillary blood glucose measurement by glucometer (mas s/volume) 110 mg/dL 70-110 Capillary blood glucose measurement by g lucometer (mass/volume) - 03/14/20 11:01 Capillary blood glucose measurement by glucometer (mas s/volume) 115 mg/dL 70-110 Encounters ACCT No. Visit Date/Time Discharge Status Pt. Type Provider Facility Loc./Unit Complaint [id number] 03/21/2020 16:00:00 ACT Out[facility] [id number] 11/03/2014 06:45:00 11/03/2014 23:59: 59 CLS Outpatient SAMIRA ARIAS DO [id number] 10/18/2014 11:29:00 10/18/2014 23:59: 59 CLS Outpatient CARLOS GARCIA, EDMUND [id number] 07/07/2008 00:00:00 07/07/2008 23:59:5 9 CLS Outpatient PERRY ESPINOSA APRN [id number] 03/10/2020 19:45:00 020 14:34:00 DIS Outpatient LEONARD GARCIA, YURIY Ramesh [facility] 4TH UTI,CONSTIPATION,ACUTE RENAL INSUFFICIENCY [id number] 12/17/2019 13:36:00 020 15:24:00 DIS Emergency MAIKEL PAINTING APRN [facility] ER FALL [id number] 10/02/2014 13:03:00 014 13:55:00 DIS Inpatient STEPHANIE GARCIA, DIYA Gilman [facility] 4TH SMALL BOWEL OBSTRUCTION,HYPERTENSIVE URGENCY [id number] 06/11/2014 14:59:00 014 17:00:00 DIS Emergency
== END 2020-03-23 15:59 | disposition home or self-care (01) ==
LOC: EDUNIT# 13:44 → ER 13:45
DX: R41.0 Disorientation, unspecified (principal); I10 Essential (primary) hypertension; E11.9 Type 2 diabetes mellitus without complications; Z88.6 Allergy status to analgesic agent; Z80.49 Family history of malignant neoplasm of other genital organs
CPT/HCPCS: 36415; 70450; 71045; 80053; 81000; 82962; 84484; 85025; 85379; 85610; 85730; 93005; 93041

== ENCOUNTER → 2020-05-10 | Outpatient (CLI) | payer MEDICARE ==
--- NOTE | 2020-05-10 16:17 | Diagnostic Imaging Report ---
PROCEDURE: US Renal Bilateral. TECHNIQUE: Multiple Real-time grayscale images were obtained over the kidneys in various projections bilaterally. INDICATION: Urinary retention. FINDINGS: The right kidney measures 12.3 x 5.0 x 6.8 cm. There does appear to be significant hydronephrosis of the right kidney. No calculi are detected. The left kidney could not be visualized. The bladder contains 1600 mL. There is a large amount of debris within the urinary bladder. There appears to be a septation within the urinary bladder. IMPRESSION: 1. Severe right-sided hydronephrosis. The left kidney was not visualized. 2. Bladder distention with a moderate amount of bladder debris and bladder septation. Dictated by: Dictated on workstation # [id number]
== END ==
LOC: RAD 12:09
PROVIDERS: ATTEND Urology
DX: N40.1 Benign prostatic hyperplasia with lower urinary tract symptoms (principal); R33.8 Other retention of urine; N18.3 Chronic kidney disease, stage 3 (moderate); N13.30 Unspecified hydronephrosis; N32.89 Other specified disorders of bladder
CPT/HCPCS: 76770

== ENCOUNTER 2021-11-16 23:24 | Inpatient (IN) | payer MEDICARE ==
[~2021-11-16] VITALS: Ht 170 cm; Wt 58.6 kg
[~2021-11-16 23:24] MED LIST changes: -LISI10TA2 PO; +LISI10TA25 PO
--- NOTE | 2021-11-17 00:03 | ED Abdominal Pain ---
General Chief Complaint: Abdominal/GI Problems Stated Complaint: UTI Source of Information: Patient, Family Exam Limitations: No Limitations History of Present Illness Date Seen by Provider: Nov 16, 2021 Time Seen by Provider: 23:25 Initial Comments Patient to the ER by private conveyance from home with chief complaint of suprapubic pain, pyuria hematuria. He lives in an independent apartment with his who typically is his caregiver but he says he right when she is not been able to do as much for him since she hurt her foot. His electric wheelchair is broken and he does not have a phone because it is lost. 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 He says he has a history of urinary retention and is post to be doing self cathing but because of his disease it is very difficult for him. So he just experiences a lot of UTIs for the past year and a half. He is followed with Dr. Edmond, urology. He also follows with Dr. Dinero from [facility]. No fevers, chills, cough or shortness of air. No Covid or influenza vaccination. Patient states he would like to be tested for Covid even though he has no symptoms. No nausea vomiting. Patient states he has for the past month and a half been having chest pain radiating up his left chest down his left arm and up both sides of his neck intermittent. His chest pain occurs only when attempting to urinate which he says causes him to strain quite a bit. He also has constipation and feels quite impacted. He has done nothing for his constipation besides drink fluids. He has a history of hypertension and diabetes for which he takes no medications. Allergies and Home Medications Allergies Coded Allergies: aspirin (Verified Allergy, Unknown, 12/17/19) Patient Home Medication List Home Medication List Reviewed: Yes Catheter (Personal Catheter Intermittent) 1 Each Each, EACH MC BID, (DME) Prescribed by: YURIY VALLE on 03/14/20 1320 Cefdinir (Cefdinir) 300 Mg Capsule, 300 MG PO BID Prescribed by: YURIY VALLE on 03/14/20 1316 Lisinopril (Lisinopril) 10 Mg Tablet, 10 MG PO DAILY Prescribed by: YURIY VALLE on 03/14/20 1316 Tamsulosin HCl (Flomax) 0.4 Mg Cap, 0.4 MG PO DAILY@1800 Prescribed by: YURIY VALLE on 03/14/20 1316 Review of Systems Review of Systems Constitutional: No chills, No diaphoresis EENTM: No Blurred Vision, No Double Vision Respiratory: Denies Cough, Denies Shortness of Air Cardiovascular: Chest Pain; Denies Irregular Heart Rate, Denies Lightheadedness Gastrointestinal: See HPI; Denies Abdomen Distended; Abdominal Pain Genitourinary: Burning, Discharge; Denies Flank Pain; Hematuria Musculoskeletal: No back pain, No joint pain Skin: No pruritus, No rash Psychiatric/Neurological: Denies Anxiety, Denies Depressed All Other Systems Reviewed Negative Unless Noted: Yes Past Tbgcowc-Vlempu-Egexml Hx Patient Social History Tobacco Use?: No Use of E-Cig and/or Vaping dev: No Substance use?: No Past Medical History Surgeries: Yes (HERNIA) Orthopedic Respiratory: No Cardiac: Yes Hypertension Neurological: No Reproductive Disorders: No Gastrointestinal: No Musculoskeletal: Yes (POLIO) Endocrine: Yes Diabetes, Non-Insulin dep Cancer: No Psychosocial: No Integumentary: No Blood Disorders: No Adverse Reaction/Blood Tranf: No Family Medical History Cervical cancer Physical Exam Vital Signs Vital Signs - First Documented 11/16/21 23:59 Temp 36.9 Pulse 96 Resp 22 B/P (MAP) 170/97 (121) Pulse Ox 100 O2 Delivery Room Air Capillary Refill : Height/Weight/BMI Height: 5'7.00" Weight: 188lbs. 6.0oz. 85.504665ph; 25.00 BMI Method:Stated General Appearance: WD/WN, mild distress HEENT: PERRL/EOMI, pharynx normal Neck: full range of motion, supple, normal inspection Respiratory: lungs clear, normal breath sounds, no respiratory distress, no accessory muscle use Cardiovascular: normal peripheral pulses, regular rate, rhythm, no edema Peripheral Pulses: 2+ Radial Pulses (R), 2+ Radial Pulses (L) Gastrointestinal: normal bowel sounds, soft, no organomegaly, tenderness (Suprapubic pain with palpable bladder fullness) Extremities: normal range of motion, normal capillary refill, other (Bilateral lower extremity atrophy, upper extremity bilateral weakness and muscle wasting.) Neurologic/Psychiatric: alert, normal mood/affect, oriented x 3, other (Chronic bilateral lower extremity atrophy and motor or sensory weakness) Skin: normal color, warm/dry Progress/Results/Core Measures Results/Orders Lab Results Laboratory Tests Test 11/16/21 23:50 11/16/21 23:57 Range/Units White Blood Count 8.4 4.3-11.0 10^3/uL Red Blood Count 2.72 L 4.30-5.52 10^6/uL Hemoglobin 8.0 L 13.3-17.7 g/dL Hematocrit 25 L 40-54 % Mean Corpuscular Volume 93 80-99 fL Mean Corpuscular Hemoglobin 29 25-34 pg Mean Corpuscular Hemoglobin Concent 32 32-36 g/dL Red Cell Distribution Width 13.7 10.0-14.5 % Platelet Count 337 130-400 10^3/uL Mean Platelet Volume 9.2 9.0-12.2 fL Immature Granulocyte % (Auto) 1 % Neutrophils (%) (Auto) 81 H 42-75 % Lymphocytes (%) (Auto) 10 L 12-44 % Monocytes (%) (Auto) 8 0-12 % Eosinophils (%) (Auto) 1 0-10 % Basophils (%) (Auto) 0 0-10 % Neutrophils # (Auto) 6.8 1.8-7.8 10^3/uL Lymphocytes # (Auto) 0.8 L 1.0-4.0 10^3/uL Monocytes # (Auto) 0.7 0.0-1.0 10^3/uL Eosinophils # (Auto) 0.1 0.0-0.3 10^3/uL Basophils # (Auto) 0.0 0.0-0.1 10^3/uL Immature Granulocyte # (Auto) 0.0 0.0-0.1 10^3/uL Sodium Level 136 135-145 MMOL/L Potassium Level 4.9 3.6-5.0 MMOL/L Chloride Level 110 H 98-107 MMOL/L Carbon Dioxide Level 12 L 21-32 MMOL/L Anion Gap 14 5-14 MMOL/L Blood Urea Nitrogen 89 H 7-18 MG/DL Creatinine 2.96 H 0.60-1.30 MG/DL Estimat Glomerular Filtration Rate 22 BUN/Creatinine Ratio 30 Glucose Level 122 H 70-105 MG/DL Calcium Level 8.3 L 8.5-10.1 MG/DL Corrected Calcium 8.8 8.5-10.1 MG/DL Total Bilirubin 0.3 0.1-1.0 MG/DL Aspartate Amino Transf (AST/SGOT) 11 5-34 U/L Alanine Aminotransferase (ALT/SGPT) 10 0-55 U/L Alkaline Phosphatase 66 40-136 U/L Troponin I < 0.028 <0.028 NG/ML C-Reactive Protein High Sensitivity 5.42 H 0.00-0.50 MG/DL Total Protein 8.6 H 6.4-8.2 GM/DL Albumin 3.4 3.2-4.5 GM/DL Urine Color YELLOW Urine Clarity TURBID H Urine pH 6.0 5-9 Urine Specific Ina 1.020 1.016-1.022 Urine Protein 3+ H NEGATIVE Urine Glucose (UA) NEGATIVE NEGATIVE Urine Ketones 1+ H NEGATIVE Urine Nitrite NEGATIVE NEGATIVE Urine Bilirubin NEGATIVE NEGATIVE Urine Urobilinogen 0.2 < = 1.0 MG/DL Urine Leukocyte Esterase 3+ H NEGATIVE Urine RBC (Auto) 3+ H NEGATIVE Urine RBC TNTC H /HPF Urine WBC TNTC H /HPF Urine Squamous Epithelial Cells NONE /HPF Urine Crystals NONE /LPF Urine Bacteria LARGE H /HPF Urine Casts NONE /LPF Urine Mucus NEGATIVE /LPF Urine Culture Indicated YES My Orders Orders - KIRK CARABALLO Ed Iv/Invasive Line Start (11/16/21 23:56) Ns Iv 1000 Ml (Sodium Chloride 0.9%) (11/17/21 00:00) Cbc With Automated Diff (11/16/21 23:56) Comprehensive Metabolic Panel (11/16/21 23:56) Hs C Reactive Protein (11/16/21 23:56) Ua Culture If Indicated (11/16/21 23:56) Post Void Residual Assessment (11/16/21 23:56) Catheter(Urinary) Insert & Ass 03,15 (11/16/21 23:56) Ekg Tracing (11/17/21 00:05) Continuous Ekg Monitoring (11/17/21 00:05) Troponin I Layla (11/17/21 00:05) Urine Culture (11/16/21 23:57) Ed Iv/Invasive Line Start (11/17/21 00:48) Ns Iv 1000 Ml (Sodium Chloride 0.9%) (11/17/21 01:00) Vital Signs/I&O 11/16/21 23:59 Temp 36.9 Pulse 96 Resp 22 B/P (MAP) 170/97 (121) Pulse Ox 100 O2 Delivery Room Air Progress Progress Note : Time: 00:09 Progress Note Liter of fluids and a prevoid bladder scan demonstrated 750 cc. He was able to urinate about 75 cc therefore I suspect he has significant retention leading to his chronic UTIs. We will put a Baer catheter in to decompress him and relieve his pain. We will give him Rocephin. He had a urinary collection 2020 with E. coli pansensitive to everything except for ciprofloxacin/levofloxacin. Aseptic vital signs. He seems to be having difficulty with taking care of himself at home and does not have a caregiver taking care of him for the past couple weeks he states. He may benefit from an overnight or for some professor of social work intervention. His daughter who dropped him off made it clear that she had to work in the morning of did not want to come back to the ER to pick him up. We did discuss the futility of testing in asymptomatic patient for Covid and offered him a send out test which he declined. Initial ECG Impression Date: Nov 17, 2021 Initial ECG Impression Time: 00:23 Initial ECG Rate: 90 Initial ECG Rhythm: Normal Sinus Initial ECG Intervals: Normal Initial ECG Impression: Normal, Nonspecific Changes Comment Normal sinus rhythm with no clinically relevant ST changes. Motion artifact noted. Departure Communication (Admissions) Time/Spoke to Admitting Phy: 01:00 Discussed the case with Dr. Guzman and she agrees to admit the patient for antibiotics, IV fluids and professor of social work consult. Impression Primary Impression: Urinary tract infection Qualified Codes: N10 - Acute pyelonephritis Additional Impressions: Acute kidney injury Dehydration Problem related to living arrangement Impaired activities of daily living Disposition: ADMITTED INPATIENT Condition: Stable Admissions Decision to Admit Reason: Admit from ER (General) Decision to Admit/Date: Nov 17, 2021 Time/Decision to Admit Time: 00:55 Departure-Patient Inst. Referrals: JJ DINERO MD, TITUS J Nov 17, 2021 00:03
[2021-11-17 00:17] LABS: BASOPHILS % (AUTO) 0 % (0-10); EOSINOPHILS # (AUTO) 0.1 10^3/uL (0.0-0.3); EOSINOPHILS % (AUTO) 1 % (0-10); HEMATOCRIT 25 % (40-54); LYMPHOCYTES # (AUTO) 0.8 10^3/uL (1.0-4.0); LYMPHOCYTES % (AUTO) 10 % (12-44); MEAN CORPUSCULAR HEMOGLOBIN 29 pg (25-34); MEAN CORPUSCULAR HGB CONC 32 g/dL (32-36); MEAN CORPUSCULAR VOLUME 93 fL (80-99); MEAN PLATELET VOLUME 9.2 fL (9.0-12.2); MONOCYTES # (AUTO) 0.7 10^3/uL (0.0-1.0); MONOCYTES % (AUTO) 8 % (0-12); NEUTROPHILS # (AUTO) 6.8 10^3/uL (1.8-7.8); NEUTROPHILS % (AUTO) 81 % (42-75); PLATELET COUNT 337 10^3/uL (130-400); WHITE BLOOD COUNT 8.4 10^3/uL (4.3-11.0)
[2021-11-17 00:37] LABS: ALANINE AMINOTRANSFERASE 10 U/L (0-55); ALBUMIN 3.4 GM/DL (3.2-4.5); ALKALINE PHOSPHATASE 66 U/L (40-136); BILIRUBIN,TOTAL 0.3 MG/DL (0.1-1.0); BUN/CREATININE RATIO 30; CALCIUM 8.3 MG/DL (8.5-10.1); CARBON DIOXIDE 12 MMOL/L (21-32); CHLORIDE 110 MMOL/L (98-107); CREATININE SERUM 2.96 MG/DL (0.60-1.30); GFR ESTIMATED 22; GLUCOSE 122 MG/DL (70-105); POTASSIUM 4.9 MMOL/L (3.6-5.0); SODIUM 136 MMOL/L (135-145); TOTAL PROTEIN 8.6 GM/DL (6.4-8.2)
[2021-11-17 00:45] LABS: CLARITY,URINE TURBID; COLOR,URINE YELLOW
[2021-11-17 00:46] LABS: GLUCOSE, URINE (UA) NEGATIVE (NEGATIVE); PROTEIN,URINE 3+ (NEGATIVE)
[2021-11-17 00:47] LABS: BILIRUBIN,URINE NEGATIVE (NEGATIVE); KETONES,URINE 1+ (NEGATIVE); LEUKOCYTE ESTERASE ,URINE 3+ (NEGATIVE); NITRITE,URINE NEGATIVE (NEGATIVE)
[2021-11-17 00:48] LABS: BACTERIA,URINE LARGE /HPF; RBC,URINE TNTC /HPF; WBC,URINE TNTC /HPF
[2021-11-17] MEDS ORDERED: NS IV 1000 ML 1,000 ML IV SCH ×2 (01:00)
[2021-11-17 02:05] VITALS: BP 150/78
[2021-11-17] MEDS ORDERED: ONDANSETRON 4 MG/2 ML (SDV) Z0FRAN IV PRN (03:15)
[2021-11-17] MEDS ORDERED: cefTRIAXone 1 GM IV (PRE-MIX) 50 ML IV SCH (03:30)
[2021-11-17] MEDS ORDERED: fentaNYL INJ 100 MCG/2 ML AMP IV PRN (03:30)
[2021-11-17] MEDS ORDERED: HYDROcodone/APAP 5 MG/325 MG (LORTAB) TAB PO PRN (03:30)
[2021-11-17] MEDS ORDERED: PHENAZOPYRIDINE 100 MG (PYRIDIUM) TABLET PO PRN (03:30)
[2021-11-17 04:13] VITALS: BP 158/72
[2021-11-17] MEDS: 1/2 NS IV SOLUTION 1,000 ML IV SCH ×3 (04:22→13:23)
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
[2021-11-17 06:29] LABS: BASOPHILS % (AUTO) 0 % (0-10); EOSINOPHILS % (AUTO) 0 % (0-10); HEMATOCRIT 23 % (40-54); HEMOGLOBIN 7.2 g/dL (13.3-17.7); LYMPHOCYTES % (AUTO) 12 % (12-44); MEAN CORPUSCULAR HEMOGLOBIN 30 pg (25-34); MEAN CORPUSCULAR HGB CONC 32 g/dL (32-36); MEAN CORPUSCULAR VOLUME 93 fL (80-99); MEAN PLATELET VOLUME 9.4 fL (9.0-12.2); MONOCYTES # (AUTO) 0.5 10^3/uL (0.0-1.0); MONOCYTES % (AUTO) 7 % (0-12); NEUTROPHILS # (AUTO) 6.2 10^3/uL (1.8-7.8); NEUTROPHILS % (AUTO) 80 % (42-75); PLATELET COUNT 299 10^3/uL (130-400); WHITE BLOOD COUNT 7.8 10^3/uL (4.3-11.0)
[2021-11-17 06:38] LABS: CALCIUM 7.6 MG/DL (8.5-10.1); CREATININE SERUM 2.6 MG/DL (0.60-1.30); POTASSIUM 4.1 MMOL/L (3.6-5.0)
[2021-11-17] MEDS: inSUlin ASPART (NovoLOG) 1 UNIT/0.01 ML (CHARGE PER UNIT) SC SCH ×4 (06:40→21:00)
[2021-11-17 07:00] VITALS: BP 163/79
[2021-11-17] MEDS ORDERED: FLU QUAD HIGH DOSE 240 MCG/0.7 ML 2021-22 (FLUZONE) IM ONE (08:15)
[2021-11-17 08:52] LABS: ABG BASE EXCESS -14.1 MMOL/L (-2.5-2.5); ABG OXYGEN SATURATION 99 % (94-100); ABG PCO2 22 MMHG (35-45); ABG PO2 114 MMHG (79-93); ABG TCO2 11.8 MMOL/L (21.0-31.0)
[2021-11-17 08:55] LABS: ABG PH 7.32 (7.37-7.43); ALLENS TEST YES-POS; INSPIRED O2 ROOM AIR; VENTILATOR NO
[2021-11-17] MEDS: CEFEPIME INJECTION 1,000 MG in NS (IVPB) 50 ML IV SCH ×2 (09:33→20:28)
[2021-11-17] MEDS: SODIUM BICARBONATE 650 MG TABLET (NON-FORMULARY) PO SCH ×3 (09:34→22:31)
[2021-11-17] MEDS: polyethylene glycoL POWDER 17 GM (MIRALAX) PACK PO SCH ×3 (09:34→22:31)
[2021-11-17] MEDS: LINEZOLID IVPB 300 ML IV SCH ×2 (09:34→22:32)
[2021-11-17 12:00] VITALS: BP 137/67
[2021-11-17] MEDS ORDERED: ONDANSETRON 4 MG (ZOFRAN) ORAL DISSOLVE TAB PO PRN (12:15)
[2021-11-17] MEDS ORDERED: BISACODYL 10 MG SUPP (DULCOLAX) PR PRN (12:15)
[2021-11-17] MEDS ORDERED: ONDANSETRON 4 MG/2 ML (SDV) Z0FRAN IVP PRN (12:15)
[2021-11-17] MEDS ORDERED: diphenhydrAMINE 25 MG TAB (BENADRYL) PO PRN (12:15)
[2021-11-17] MEDS ORDERED: ALPRAZolam 0.25 MG (XANAX) TAB PO PRN (12:15)
[2021-11-17] MEDS ORDERED: MELATONIN 3 MG TABLET PO PRN (12:15)
[2021-11-17] MEDS ORDERED: ENOXAPARIN 40 MG/0.4 ML (LOVENOX) SYR SC SCH (12:15)
[2021-11-17] MEDS ORDERED: CALCIUM CARBONATE 500 MG (TUMS) TAB.CHEW PO PRN (12:15)
[2021-11-17] MEDS: LACTULOSE SYRUP 10GM/15ML (ENULOSE) 30ML UDC PO SCH ×2 (12:40→22:32)
[2021-11-17] MEDS: SENNA W/DOCUSATE (SENOKOT S) TABLET PO SCH ×2 (12:41→22:31)
[2021-11-17] MEDS: ENOXAPARIN 30 MG/0.3 ML (LOVENOX) SYR SC SCH (12:41)
[2021-11-17] MEDS: DOCUSATE SODIUM 100 MG (COLACE) CAP PO SCH ×2 (12:41→22:32)
[2021-11-17 16:00] VITALS: BP 134/63
[2021-11-17 20:00] VITALS: BP 129/61
[2021-11-18] VITALS (9 sets, daily range): BP systolic 111–148; BP diastolic 62–84
[2021-11-18] MEDS: 1/2 NS IV SOLUTION 1,000 ML IV SCH ×3 (02:10→17:14)
[2021-11-18] MEDS: inSUlin ASPART (NovoLOG) 1 UNIT/0.01 ML (CHARGE PER UNIT) SC SCH ×4 (06:28→22:11)
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
[2021-11-18 07:30] LABS: BASOPHILS % (AUTO) 0 % (0-10); EOSINOPHILS # (AUTO) 0.1 10^3/uL (0.0-0.3); EOSINOPHILS % (AUTO) 2 % (0-10); LYMPHOCYTES # (AUTO) 0.9 10^3/uL (1.0-4.0); LYMPHOCYTES % (AUTO) 15 % (12-44); MEAN CORPUSCULAR HEMOGLOBIN 30 pg (25-34); MEAN CORPUSCULAR HGB CONC 32 g/dL (32-36); MEAN CORPUSCULAR VOLUME 94 fL (80-99); MEAN PLATELET VOLUME 9.3 fL (9.0-12.2); MONOCYTES # (AUTO) 0.6 10^3/uL (0.0-1.0); MONOCYTES % (AUTO) 9 % (0-12); NEUTROPHILS # (AUTO) 4.4 10^3/uL (1.8-7.8); NEUTROPHILS % (AUTO) 74 % (42-75); PLATELET COUNT 248 10^3/uL (130-400)
[2021-11-18 07:41] LABS: HEMATOCRIT 20 % (40-54); HEMOGLOBIN 6.5 g/dL (13.3-17.7)
[2021-11-18 07:49] LABS: ALBUMIN 2.8 GM/DL (3.2-4.5); BILIRUBIN,TOTAL 0.2 MG/DL (0.1-1.0); CALCIUM 7.1 MG/DL (8.5-10.1); CREATININE SERUM 2.6 MG/DL (0.60-1.30); POTASSIUM 4.1 MMOL/L (3.6-5.0); TOTAL PROTEIN 6.7 GM/DL (6.4-8.2)
[2021-11-18] MEDS ORDERED: NS IV 500 ML 500 ML IV SCH (08:15)
[2021-11-18] MEDS: LINEZOLID IVPB 300 ML IV SCH ×2 (09:31→22:11)
[2021-11-18] MEDS: polyethylene glycoL POWDER 17 GM (MIRALAX) PACK PO SCH ×3 (09:34→20:56)
[2021-11-18] MEDS: CEFEPIME INJECTION 1,000 MG in NS (IVPB) 50 ML IV SCH ×2 (09:34→20:56)
[2021-11-18] MEDS: SENNA W/DOCUSATE (SENOKOT S) TABLET PO SCH ×2 (09:35→20:56)
[2021-11-18] MEDS: SODIUM BICARBONATE 650 MG TABLET (NON-FORMULARY) PO SCH ×3 (09:35→20:56)
[2021-11-18] MEDS: LACTULOSE SYRUP 10GM/15ML (ENULOSE) 30ML UDC PO SCH ×2 (09:35→20:56)
[2021-11-18] MEDS: DOCUSATE SODIUM 100 MG (COLACE) CAP PO SCH ×2 (09:35→20:56)
[2021-11-18] MEDS: ENOXAPARIN 30 MG/0.3 ML (LOVENOX) SYR SC SCH (13:24)
[2021-11-19] VITALS (8 sets, daily range): BP systolic 118–153; BP diastolic 61–93
[2021-11-19] MEDS: 1/2 NS IV SOLUTION 1,000 ML IV SCH ×2 (06:02→18:33)
[2021-11-19] MEDS: inSUlin ASPART (NovoLOG) 1 UNIT/0.01 ML (CHARGE PER UNIT) SC SCH ×4 (06:52→20:19)
[2021-11-19 06:57] LABS: BASOPHILS % (AUTO) 0 % (0-10); EOSINOPHILS # (AUTO) 0.2 10^3/uL (0.0-0.3); EOSINOPHILS % (AUTO) 3 % (0-10); HEMATOCRIT 22 % (40-54); HEMOGLOBIN 7.1 g/dL (13.3-17.7); LYMPHOCYTES # (AUTO) 0.9 10^3/uL (1.0-4.0); LYMPHOCYTES % (AUTO) 16 % (12-44); MEAN CORPUSCULAR HEMOGLOBIN 30 pg (25-34); MEAN CORPUSCULAR HGB CONC 32 g/dL (32-36); MEAN CORPUSCULAR VOLUME 93 fL (80-99); MEAN PLATELET VOLUME 9.2 fL (9.0-12.2); MONOCYTES # (AUTO) 0.5 10^3/uL (0.0-1.0); MONOCYTES % (AUTO) 9 % (0-12); NEUTROPHILS # (AUTO) 4.1 10^3/uL (1.8-7.8); NEUTROPHILS % (AUTO) 71 % (42-75); PLATELET COUNT 240 10^3/uL (130-400); WHITE BLOOD COUNT 5.8 10^3/uL (4.3-11.0)
[2021-11-19 07:17] LABS: ALBUMIN 2.6 GM/DL (3.2-4.5); BILIRUBIN,TOTAL 0.3 MG/DL (0.1-1.0); CALCIUM 6.7 MG/DL (8.5-10.1); CREATININE SERUM 2.46 MG/DL (0.60-1.30); POTASSIUM 3.7 MMOL/L (3.6-5.0); TOTAL PROTEIN 6.5 GM/DL (6.4-8.2)
[2021-11-19] MEDS: SENNA W/DOCUSATE (SENOKOT S) TABLET PO SCH ×2 (08:44→20:32)
[2021-11-19] MEDS: DOCUSATE SODIUM 100 MG (COLACE) CAP PO SCH ×2 (08:44→20:31)
[2021-11-19] MEDS: SODIUM BICARBONATE 650 MG TABLET (NON-FORMULARY) PO SCH ×3 (08:44→20:31)
[2021-11-19] MEDS: polyethylene glycoL POWDER 17 GM (MIRALAX) PACK PO SCH ×3 (08:44→20:31)
[2021-11-19] MEDS: LACTULOSE SYRUP 10GM/15ML (ENULOSE) 30ML UDC PO SCH ×2 (08:45→20:31)
[2021-11-19] MEDS: CEFEPIME INJECTION 1,000 MG in NS (IVPB) 50 ML IV SCH ×2 (08:45→20:31)
[2021-11-19] MEDS: ACETAMINOPHEN 325 MG TABLET PO PRN ×2 (08:45→18:52)
[2021-11-19] MEDS: LINEZOLID IVPB 300 ML IV SCH (09:44)
[2021-11-19] MEDS: ENOXAPARIN 30 MG/0.3 ML (LOVENOX) SYR SC SCH (13:40)
--- NOTE | 2021-11-19 15:23 | Physical Therapy Evaluation ---
PT Evaluation-General Medical Diagnosis Admission Date Nov 17, 2021 at 01:00 Medical Diagnosis: UTI, sepsis Onset Date: Nov 17, 2021 Therapy Diagnosis Therapy Diagnosis: impaired mobility, strength Height/Weight Height (Feet): 5 Height (Inches): 7.00 Weight (Pounds): 188 Weight (Ounces): 6.0 Precautions Precautions/Isolations: Fall Prevention, Standard Precautions Referral Physician: Jeffery Reason for Referral: Evaluation/Treatment Medical History Additional Medical History Past medical history 1. Type II diabetes mellitus uncontrolled 2. Post polio syndrome 3. Hypertension 4. Substance abuse Past surgical history 1. Hernia repair 2. Hip extension Reviewed History: Yes Social History Home: Single Level Current Living Status: Spouse Entry Into Home: Level Entry Prior Prior Level of Function SCALE: Activities may be completed with or without assistive devices. 8-Ejbabimfaj-wvbqxjd completes the activity by him/herself with no assistance from a helper. 5-Set-up or Clean-up Assistance-helper sets up or cleans up; patient completes activity. Frazer assists only prior to or following the activity. 4-Supervision or Touching Assistance-helper provides verbal cues and/or touching/steadying and/or contact guard assistance as patient completes activity. Assistance may be provided throughout the activity or intermittently. 3-Partial/Moderate Assistance-helper does LESS THAN HALF the effort. Frazer li fts, holds or supports trunk or limbs, but provides less than half the effort. 2-Substantial/Maximal Assistance-helper does MORE THAN HALF the effort. Frazer lifts or holds trunk or limbs and provides more than half the effort. 4-Bnowvbrsb-ystive does ALL the effort. Patient does none of the effort to complete the activity. Or, the assistance of 2 or more helpers is required for the patient to complete the activity. If activity was not attempted, code reason: 7-Patient Refused. 9-Not Applicable-not attempted and the patient did not perform the activity before the current illness, exacerbation or injury. 10-Not Attempted due to Environmental Limitations-(lack of equipment, weather restraints, etc.). 88-Not Attempted due to Medical Conditions or Safety Concerns. Bed Mobility: 6 Transfers (B,C,W/C): 6 Wheelchair Mobility: 6 Patient has a power wheelchair that no longer works, he says his family has gotten him another one and it is at his home. PT Evaluation-Current Subjective Patient in bed pre tx, agrees to PT, has 6-7/10 pain in abdomen. Patient has some severe looking swelling in his abdomen left side. Pt/Family Goals to be independent at home Objective Patient Orientation: Person, Place, Situation ROM/Strength ROM Lower Extremities limited bilaterally, patient has a severe right ankle contracture Strength Lower Extremities RLE 0/5, LLE grossly 1-2/5 Sensory Vision: Functional Hearing: Functional Sensation Right Lower Extremit: Intact Sensation Left Lower Extremity: Intact Transfers Roll Left to Right (QC): 3 Patient is agreeable to get into the recliner, he says he performs transfers using his arms, most likely he would need a little help, patient states he has gotten a little weaker. However, radiology comes into room and has to take him, they take him down in his bed. Assessment/Needs Patient in bed with radiology post tx. Patient has impaired mobility, strength. Rehab Potential: Fair PT Consultant Teacher Goals Fdc Goals PT Fdc Goals Time Frame: Nov 20, 2021 Roll Left & Right (QC): 4 Sit to Lying (QC): 4 Lying-Sitting on Side/Bed(QC): 4 Chair/Bbf-ol-Uoodj Xfer(QC): 3 PT Plan Problem List Problem List: Activity Tolerance, Functional Strength, Safety, Balance, Gait, Transfer, Bed Mobility, ROM Treatment/Plan Treatment Plan: Continue Plan of Care Treatment Plan: Bed Mobility, Education, Functional Activity Gigi, Functional Strength, Safety, Therapeutic Exercise, Transfers Treatment Duration: Nov 26, 2021 Frequency: 6 times per week Estimated Hrs Per Day: .25 hour per day Patient and/or Family Agrees t: Yes Safety Risks/Education Patient Education: Correct Positioning, Safety Issues Teaching Recipient: Patient Teaching Methods: Demonstration, Discussion Response to Teaching: Reinforcement Needed Discharge Recommendations Plan Patient will perform bed mobility and transfer training, balance and endurance t raining, functional strengthening, and education, to improve functional mobility and independence at home. Therapy Discharge Recommendati: 24 Hour Supervision Time/GCodes Time In: 1504 Time Out: 1514 Total Billed Treatment Time: 10 Total Billed Treatment 1 visit OUMOU OliveraKT CASILLAS PT Nov 19, 2021 15:23
--- NOTE | 2021-11-19 15:45 | Diagnostic Imaging Report ---
INDICATION: Increasing abdominal distention, history of urinary tract infections. TECHNIQUE: Multiple contiguous axial images were obtained through the abdomen and pelvis without the use of intravenous contrast. Auto Exposure Controls were utilized during the CT exam to meet ALARA standards for radiation dose reduction. COMPARISON: Comparison made with 10/02/2014. FINDINGS: The visualized portions of the lung bases were clear. There were no pleural fluid collections. There is no free intraperitoneal air. There are scoliotic changes in the lumbar spine with diffuse degenerative findings, no acute abnormality. The liver and gallbladder appear normal. The spleen, adrenals, and pancreas appear unremarkable without contrast. Right kidney shows increasing atrophic change compared to the prior study. There are small foci of air in the anterior calyces of the right kidney which may due to gas-producing organism. There is no change in the small cysts in the right kidney. There is moderate hydroureter on the right side. The left kidney shows mild hydronephrosis with moderate hydroureter, down to the level of the bladder. The bladder shows abnormal soft tissue density which may represent mass or hemorrhage within the bladder. A Baer catheter is in place in the bladder. There is prominent stool in the rectum. There is abnormal soft tissue thickening about the left hip joint space. Atrophy of the pelvic musculature is noted. IMPRESSION: 1. There is increasing atrophy of the right kidney with moderate hydronephrosis and hydroureter, with some air in the anterior calyces of the right kidney which may represent gas-producing infection. No right-sided stone disease is seen. There is moderate left hydronephrosis and hydroureter, without definite stone. The urinary bladder is abnormal in appearance with diffuse increased density, which may represent mass or hematoma in the bladder. Correlate with clinical findings, CT cystogram may be helpful for further evaluation if clinically warranted. 2. There is prominent stool in the rectum as well as atrophy of the pelvic musculature. There is abnormal soft tissue thickening about the left hip joint. There is no ascites or discrete abscess. Dictated by: Dictated on workstation # [id number]
--- NOTE | 2021-11-19 17:23 | Progress Note ---
Subjective Subjective/Events-last exam Afebrile, reports feeling pretty well. Focused Exam Lactate Level 11/17/21 07:34: Lactic Acid Level 0.53 Objective Exam Last Set of Vital Signs Vital Signs Date Time Temp Pulse Resp B/P (MAP) Pulse Ox O2 Delivery O2 Flow Rate FiO2 11/19/21 14:25 69 145/84 (104) 11/19/21 11:26 36.2 18 100 Room Air 11/18/21 04:00 0.00 0.00 Capillary Refill : I&O Intake and Output 11/19/21 00:00 Intake Total 3410 ml Output Total 3625 ml Balance -215 ml Intake Oral 1660 ml IV Total 1750 ml Output Urine Total 3625 ml General: Alert, No Acute Distress Lungs: Clear to Auscultation, Normal Air Movement Heart: Regular Rate, No Murmurs Abdomen: Normal Bowel Sounds, Soft Psych/Mental Status: Mood NL Results/Procedures Lab Laboratory Tests 11/18/21 20:27: Glucometer 95 11/19/21 06:43: White Blood Count 5.8, Red Blood Count 2.40L, Hemoglobin 7.1L, Hematocrit 22L, Mean Corpuscular Volume 93, Mean Corpuscular Hemoglobin 30, Mean Corpuscular Hemoglobin Concent 32, Red Cell Distribution Width 14.1, Platelet Count 240, Mean Platelet Volume 9.2, Immature Granulocyte % (Auto) 1, Neutrophils (%) (Auto) 71, Lymphocytes (%) (Auto) 16, Monocytes (%) (Auto) 9, Eosinophils (%) (Auto) 3, Basophils (%) (Auto) 0, Neutrophils # (Auto) 4.1, Lymphocytes # (Auto) 0.9L, Monocytes # (Auto) 0.5, Eosinophils # (Auto) 0.2, Basophils # (Auto) 0.0, Immature Granulocyte # (Auto) 0.1, Sodium Level 136, Potassium Level 3.7, Chlo ride Level 112H, Carbon Dioxide Level 12L, Anion Gap 12, Blood Urea Nitrogen 62H , Creatinine 2.46H, Estimat Glomerular Filtration Rate 28, BUN/Creatinine Ratio 25, Glucose Level 98, Calcium Level 6.7L, Corrected Calcium 7.8L, Total Bilirubin 0.3, Aspartate Amino Transf (AST/SGOT) 13, Alanine Aminotransferase (ALT/SGPT) 13, Alkaline Phosphatase 45, Total Protein 6.5, Albumin 2.6L 11/19/21 06:50: Glucometer 94 11/19/21 11:31: Glucometer 158H 11/19/21 13:05: Lab Scanned Report Transfusion Reaction Form 11/19/21 16:07: Glucometer 92 Microbiology 11/16/21 Urine Culture - Final, Complete Mixed Bacterial Stefani Assessment/Plan Assessment/Plan Assessment & Plan UTI resistant organism suspected- started on cefepime and linezolid, will narrow to cefepime only today Urinary retention performs own self caths at home Post polio syndrome wheelchair bound HTN- history of being on lisinopril, not taking meds prior to admit, monitor and start antihypertensive as needed CKD- uncertain baseline suspect acute on CKD, last clinic labs May 2020 with cr 1.36 BPH Metabolic acidosis chronic due to CKD Anemia severe suspect secondary to CKD, s/p 1 unit DIYA BROWN MD Nov 19, 2021 17:23
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
--- NOTE | 2021-11-19 18:49 | Physician Query Clarification ---
Physician Query-General Query to Physician: The medical record reflects the following clinical scenario: The patient, in the setting of History/Risk factors, Getting poor care at home, Self caths due to polio, Clinical Findings Admission VS/Labs: HR 96, RR 22, BP 170/97, SpO2 100% sat on RA T 36.9, WBC 8.4, Lactic Acid 0.53 Treatment Normal saline 2 L, IV Cefepime Question: Can you further specify Sepsis per the clinical indicators above? Please document your response in the Progress Notes or Discharge Summary. 1. Sepsis due to Urinary Tract Infection, present on admission 2. Other, with explanation of clinical findings 3. Clinically undetermined, no explanation for clinical findings Please clarify and document your clinical opinion in the Progress Notes and Discharge Summary including the definitive and/or presumptive diagnosis, (suspected or probable), related to the above clinical findings. Please include clinical findings supporting your diagnosis. In responding to this query, please exercise your independent professional judgment. The purpose of this communication is to more accurately reflect the complexity of your patients condition. The fact that a question is asked does not imply that any particular answer is desired or expected. Please remember a lack of response to the above will prompt a phone page by CDI/coding staff. Thank you for timely response to this clarification. Rima Allen MSN,RN Clinical Care Mgr [phone] [email or web address] PHYSICIAN RESPONSE: Based on the clinical findings in the record, please respond to the query above on this document as an addendum. Physician Response: Physician Response 1 If you have questions please contact: Order Runner: Ext: Thank you for your time and cooperation. Clinical Care Mgr/Order Runner This is a permanent part of the medical recor d RIMA ALLEN Nov 19, 2021 18:49 DIYA BROWN MD Nov 19, 2021 20:19 CHARO ARIAS DO Nov 19, 2021 21:01
[2021-11-20 04:15] VITALS: BP 161/79
[2021-11-20 05:56] LABS: HEMATOCRIT 25 % (40-54); HEMOGLOBIN 7.8 g/dL (13.3-17.7); MEAN CORPUSCULAR HEMOGLOBIN 30 pg (25-34); MEAN CORPUSCULAR HGB CONC 32 g/dL (32-36); MEAN CORPUSCULAR VOLUME 95 fL (80-99); MEAN PLATELET VOLUME 9.2 fL (9.0-12.2); PLATELET COUNT 253 10^3/uL (130-400); WHITE BLOOD COUNT 5.2 10^3/uL (4.3-11.0)
[2021-11-20 06:06] LABS: POTASSIUM 3.5 MMOL/L (3.6-5.0)
[2021-11-20 06:07] LABS: CALCIUM 6.9 MG/DL (8.5-10.1)
[2021-11-20 06:11] LABS: CREATININE SERUM 2.37 MG/DL (0.60-1.30)
[2021-11-20] MEDS: inSUlin ASPART (NovoLOG) 1 UNIT/0.01 ML (CHARGE PER UNIT) SC SCH ×3 (06:30→21:27)
[2021-11-20] MEDS: 1/2 NS IV SOLUTION 1,000 ML IV SCH ×2 (06:44→18:56)
[2021-11-20 08:00] VITALS: BP 149/79
[2021-11-20] MEDS: CEFEPIME INJECTION 1,000 MG in NS (IVPB) 50 ML IV SCH ×2 (08:30→20:32)
[2021-11-20] MEDS: DOCUSATE SODIUM 100 MG (COLACE) CAP PO SCH ×2 (08:30→20:33)
[2021-11-20] MEDS: SODIUM BICARBONATE 650 MG TABLET (NON-FORMULARY) PO SCH ×3 (08:30→20:33)
[2021-11-20] MEDS: LACTULOSE SYRUP 10GM/15ML (ENULOSE) 30ML UDC PO SCH ×2 (08:30→20:33)
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
[2021-11-20] MEDS: SENNA W/DOCUSATE (SENOKOT S) TABLET PO SCH ×2 (09:00→20:33)
--- NOTE | 2021-11-20 09:10 | Physical Therapy Daily Note ---
PT Daily Note-Current Subjective Patient presented in bed and agrees to participate with therapy. Patient reports that he has soiled the bed and needs help getting changed. Mental Status Patient Orientation: Person, Place, Time, Situation Attachments: Baer Catheter, IV Transfers SCALE: Activities may be completed with or without assistive devices. 6-Xpbbzprikh-ikejeuu completes the activity by him/herself with no assistance from a helper. 5-Set-up or Clean-up Assistance-helper sets up or cleans up; patient completes activity. [place] assists only prior to or following the activity. 4-Supervision or Touching Assistance-helper provides verbal cues and/or touching/steadying and/or contact guard assistance as patient completes activity. Assistance may be provided throughout the activity or intermittently. 3-Partial/Moderate Assistance-helper does LESS THAN HALF the effort. [place] lifts, holds or supports trunk or limbs, but provides less than half the effort. 2-Substantial/Maximal Assistance-helper does MORE THAN HALF the effort. [place] lifts or holds trunk or limbs and provides more than half the effort. 6-Zvzxqvjag-nqjgnf does ALL the effort. Patient does none of the effort to complete the activity. Or, the assistance of 2 or more helpers is required for the patient to complete the activity. If activity was not attempted, code reason: 7-Patient Refused. 9-Not Applicable-not attempted and the patient did not perform the activity before the current illness, exacerbation or injury. 10-Not Attempted due to Environmental Limitations-(lack of equipment, weather restraints, etc.). 88-Not Attempted due to Medical Conditions or Safety Concerns. Roll Left & Right (QC): 3 Patient was [place] for all bed mobility exercises. Gait Training Does the Patient Walk?: No and Walking Goal NOT indicated Treatments Bed mobility PROM LE Passive stretching of LE Assessment Patient completed bed mobility and tolerated passive ROM and stretching to his bilateral LE. Patient reports that he has been using his wheel chair for years and performs his transfers by himself. Patient required assistance with cleaning himself up after soiling the bed. Patient LE have contractures from being in a wheel chair for years. Patient initially wanted to transfer over to the chair but determined he should stay in the bed due to frequent BM. PT Alf Goals Alf Goals PT Immigration Associate Goals Time Frame: Nov 20, 2021 Roll Left & Right (QC): 4 Sit to Lying (QC): 4 Lying-Sitting on Side/Bed(QC): 4 Chair/Mwb-vr-Trmsy Xfer(QC): 3 PT Plan Problem List Problem List: Activity Tolerance, Functional Strength, Safety, Balance, Transfer, Bed Mobility, ROM Treatment/Plan Treatment Plan: Continue Plan of Care Treatment Plan: Bed Mobility, Education, Functional Activity Gigi, Functional Strength, Safety, Therapeutic Exercise, Transfers Treatment Duration: Nov 26, 2021 Frequency: 6 times per week Estimated Hrs Per Day: .25 hour per day Patient and/or Family Agrees t: Yes Time/GCodes Time In: 750 Time Out: 813 Total Billed Treatment Time: 23 Total Billed Treatment 1 Visit FA 15 min Ex 8 min SHEILA MICHEL PT Nov 20, 2021 09:10
[2021-11-20 11:00] VITALS: BP 165/85
[2021-11-20] MEDS: ENOXAPARIN 30 MG/0.3 ML (LOVENOX) SYR SC SCH (14:06)
--- NOTE | 2021-11-20 15:34 | Progress Note ---
Subjective Subjective/Events-last exam Afebrile, states he is feeling pretty well today. Objective Exam Last Set of Vital Signs Vital Signs Date Time Temp Pulse Resp B/P (MAP) Pulse Ox O2 Delivery O2 Flow Rate FiO2 11/20/21 11:00 36.4 64 20 165/85 (111) 99 Room Air 11/18/21 04:00 0.00 0.00 Capillary Refill : I&O Intake and Output 11/20/21 00:00 Intake Total 3200 ml Output Total 3125 ml Balance 75 ml Intake Oral 2200 ml IV Total 1000 ml Output Urine Total 3125 ml General: Alert, No Acute Distress Lungs: Clear to Auscultation, Normal Air Movement Heart: Regular Rate, No Murmurs Abdomen: Normal Bowel Sounds, Soft, Other (soft mass on left side of lower abdomen bulging out to side, mildly tender to palpation) Extremities: No Edema Psych/Mental Status: Mood NL Results/Procedures Lab Laboratory Tests 11/19/21 16:07: Glucometer 92 11/19/21 20:15: Glucometer 115H 11/20/21 05:37: White Blood Count 5.2, Red Blood Count 2.60L, Hemoglobin 7.8L, Hematocrit 25L, Mean Corpuscular Volume 95, Mean Corpuscular Hemoglobin 30, Mean Corpuscular Hemoglobin Concent 32, Red Cell Distribution Width 14.3, Platelet Count 253, Mean Platelet Volume 9.2, Sodium Level 137, Potassium Level 3.5L, Chloride Level 112H, Carbon Dioxide Level 14L, Anion Gap 11, Blood Urea Nitrogen 50H, Creatinine 2.37H, Estimat Glomerular Filtration Rate 29, BUN/Creatinine Ratio 21, Glucose Level 89, Calcium Level 6.9L, Thyroid Stimulating Hormone (TSH) 4.07 11/20/21 10:58: Glucometer 76 Microbiology 11/16/21 Urine Culture - Final, Complete Mixed Bacterial Stefani Assessment/Plan Assessment/Plan Assessment & Plan UTI resistant organism suspected- started on cefepime and linezolid, will narrow to cefepime only today 2- culture with mixed bacteria, continue current antibiotics. Urinary retention performs own self caths at home Post polio syndrome wheelchair bound HTN- history of being on lisinopril, not taking meds prior to admit, monitor and start antihypertensive as needed 2/- add amlodipine 5 mg daily CKD- uncertain baseline suspect acute on CKD, last clinic labs May 2020 with cr 1.36 11/20- continued slow improvement BPH Metabolic acidosis chronic due to CKD Anemia severe suspect secondary to CKD, s/p 1 unit Left abdominal mass- CT unrevealing, will check ultrasound DVT ppx- enoxaparin DIYA BROWN MD Nov 20, 2021 15:34
[2021-11-20 16:00] VITALS: BP 139/69
--- NOTE | 2021-11-20 16:29 | Diagnostic Imaging Report ---
INDICATION: Soft tissue thickening about the left hip joint. FINDINGS: Sonographic interrogation of the left abdomen was performed. No abdominal wall defect is seen. No fluid collection or mass is detected. IMPRESSION: Unremarkable soft tissue ultrasound. Dictated by: Dictated on workstation # [id number]
[2021-11-20] MEDS: BISACODYL 10 MG SUPP (DULCOLAX) PR SCH (17:23)
[2021-11-20] MEDS: amLODIPine 5 MG (NORVASC) TAB PO SCH (17:23)
[2021-11-20 19:32] VITALS: BP 160/77
[2021-11-21] VITALS (7 sets, daily range): BP systolic 128–152; BP diastolic 65–80
[2021-11-21] MEDS: inSUlin ASPART (NovoLOG) 1 UNIT/0.01 ML (CHARGE PER UNIT) SC SCH (05:11)
[2021-11-21 06:04] LABS: HEMATOCRIT 24 % (40-54); HEMOGLOBIN 7.6 g/dL (13.3-17.7); MEAN CORPUSCULAR HEMOGLOBIN 30 pg (25-34); MEAN CORPUSCULAR HGB CONC 32 g/dL (32-36); MEAN CORPUSCULAR VOLUME 94 fL (80-99); MEAN PLATELET VOLUME 9.3 fL (9.0-12.2); PLATELET COUNT 232 10^3/uL (130-400); WHITE BLOOD COUNT 5.7 10^3/uL (4.3-11.0)
[2021-11-21 06:25] LABS: CREATININE SERUM 2.32 MG/DL (0.60-1.30)
[2021-11-21] MEDS: 1/2 NS IV SOLUTION 1,000 ML IV SCH ×2 (06:27→17:57)
[2021-11-21] MEDS: DOCUSATE SODIUM 100 MG (COLACE) CAP PO SCH ×2 (08:27→20:39)
[2021-11-21] MEDS: SODIUM BICARBONATE 650 MG TABLET (NON-FORMULARY) PO SCH ×3 (08:27→20:39)
[2021-11-21] MEDS: CEFEPIME INJECTION 1,000 MG in NS (IVPB) 50 ML IV SCH ×2 (08:27→20:35)
[2021-11-21] MEDS: SENNA W/DOCUSATE (SENOKOT S) TABLET PO SCH ×2 (08:29→20:39)
[2021-11-21] MEDS: LACTULOSE SYRUP 10GM/15ML (ENULOSE) 30ML UDC PO SCH ×3 (08:30→20:39)
[2021-11-21] MEDS: amLODIPine 5 MG (NORVASC) TAB PO SCH (08:30)
[2021-11-21] MEDS: BISACODYL 10 MG SUPP (DULCOLAX) PR SCH (08:31)
--- NOTE | 2021-11-21 10:22 | Physical Therapy Daily Note ---
PT Daily Note-Current Subjective Pt. in bed, agreeable to therapy. Mental Status Patient Orientation: Person, Place, Time, Situation Transfers SCALE: Activities may be completed with or without assistive devices. 0-Zbevikndhm-osapuys completes the activity by him/herself with no assistance from a helper. 5-Set-up or Clean-up Assistance-helper sets up or cleans up; patient completes activity. [place] assists only prior to or following the activity. 4-Supervision or Touching Assistance-helper provides verbal cues and/or touching/steadying and/or contact guard assistance as patient completes activity. Assistance may be provided throughout the activity or intermittently. 3-Partial/Moderate Assistance-helper does LESS THAN HALF the effort. [place] lifts, holds or supports trunk or limbs, but provides less than half the effort. 2-Substantial/Maximal Assistance-helper does MORE THAN HALF the effort. [place] lifts or holds trunk or limbs and provides more than half the effort. 1-Zqcuhbnxe-megqoy does ALL the effort. Patient does none of the effort to complete the activity. Or, the assistance of 2 or more helpers is required for the patient to complete the activity. If activity was not attempted, code reason: 7-Patient Refused. 9-Not Applicable-not attempted and the patient did not perform the activity before the current illness, exacerbation or injury. 10-Not Attempted due to Environmental Limitations-(lack of equipment, weather restraints, etc.). 88-Not Attempted due to Medical Conditions or Safety Concerns. Gait Training Does the Patient Walk?: No and Walking Goal NOT indicated Treatments (B) PROM of LE's. Reviewed UE exercises and patient repositioned himself in bed by uses bed rails at head of bed. We discussed transfers and patient feels he will be able to transfer into his w/c at home without issue using his preferred technique. Assessment Pt. in bed post session with call light and all needs met. PT Financial Wellness Coach Goals [facility] Goals PT [facility] Goals Time Frame: Nov 20, 2021 Roll Left & Right (QC): 4 Sit to Lying (QC): 4 Lying-Sitting on Side/Bed(QC): 4 Chair/Kbm-ii-Msjhl Xfer(QC): 3 PT Plan Treatment/Plan Treatment Plan: Continue Plan of Care Treatment Plan: Bed Mobility, Education, Functional Activity Gigi, Functional Strength, Safety, Therapeutic Exercise, Transfers Treatment Duration: Nov 26, 2021 Frequency: 6 times per week Estimated Hrs Per Day: .25 hour per day Patient and/or Family Agrees t: Yes Time/GCodes Time In: 0850 Time Out: 0910 Total Billed Treatment Time: 20 Total Billed Treatment 1, FA 20' JANETT ESPINO PT Nov 21, 2021 10:22
[2021-11-21] MEDS ORDERED: LACT20SO2 PO (11:04)
[2021-11-21] MEDS ORDERED: NF-SODBICA PO (11:04)
[2021-11-21] MEDS ORDERED: AMLO-250 PO (11:04)
[2021-11-21] MEDS ORDERED: SENN1TAB76 PO (11:04)
[2021-11-21] MEDS ORDERED: CEFD300C3 PO (11:04)
--- NOTE | 2021-11-21 11:09 | Progress Note ---
Subjective Subjective/Events-last exam He reports he is feeling pretty well. Objective Exam Last Set of Vital Signs Vital Signs Date Time Temp Pulse Resp B/P (MAP) Pulse Ox O2 Delivery O2 Flow Rate FiO2 11/21/21 08:13 36.4 77 20 148/80 (102) 100 Room Air 11/18/21 04:00 0.00 0.00 Capillary Refill : I&O Intake and Output 11/21/21 00:00 Intake Total 2114 ml Output Total 3475 ml Balance -1361 ml Intake Oral 2114 ml Output Urine Total 3475 ml # Bowel Movements 8 General: Alert, No Acute Distress Lungs: Clear to Auscultation, Normal Air Movement Heart: Regular Rate, No Murmurs Abdomen: Normal Bowel Sounds, Soft, Other (left lateral soft non tender asymmetry) Extremities: No Edema Neuro: Normal Speech Psych/Mental Status: Mood NL Results/Procedures Lab Laboratory Tests 11/20/21 16:00: Glucometer 83 11/20/21 20:53: Glucometer 120H 11/21/21 05:06: Glucometer 84 11/21/21 05:26: White Blood Count 5.7, Red Blood Count 2.51L, Hemoglobin 7.6L, Hematocrit 24L, Mean Corpuscular Volume 94, Mean Corpuscular Hemoglobin 30, Mean Corpuscular Hemoglobin Concent 32, Red Cell Distribution Width 14.0, Platelet Count 232, Mean Platelet Volume 9.3, Sodium Level 138, Potassium Level 4.0, Chloride Level 111H, Carbon Dioxide Level 14L, Anion Gap 13, Blood Urea Nitrogen 50H, Creatinine 2.32H, Estimat Glomerular Filtration Rate 30, BUN/Creatinine Ratio 22, Glucose Level 81, Calcium Level 7.0L Microbiology 11/16/21 Urine Culture - Final, Complete Mixed Bacterial Stefani Assessment/Plan Assessment/Plan Assessment & Plan UTI resistant organism suspected- started on cefepime and linezolid, will narrow to cefepime only today 11/20- culture with mixed bacteria, continue current antibiotics. 11/21- cefepime day 5 Urinary retention performs own self caths at home Post polio syndrome wheelchair bound- plan to d/c to SNF when available HTN- history of being on lisinopril, not taking meds prior to admit, monitor and start antihypertensive as needed 11/20- add amlodipine 5 mg daily CKD- uncertain baseline suspect acute on CKD, last clinic labs May 2020 with cr 1.36 11/20- continued slow improvement 11/21- Cr trending down still BPH Metabolic acidosis chronic due to CKD- started on sodium bicarb with improvement in CO2 Anemia severe suspect secondary to CKD, s/p 1 unit Left abdominal mass- CT unrevealing, ultrasound with no acute abnormalities, stool seen in intestines; use aggressive bowel regimen DVT ppx- enoxaparin Disp- planning discharge to SNF as soon as spot available, awaiting authorization. DIYA BROWN MD Nov 21, 2021 11:09
[2021-11-21] MEDS: ENOXAPARIN 30 MG/0.3 ML (LOVENOX) SYR SC SCH (12:46)
--- NOTE | 2021-11-21 13:59 | Discharge Inst-Skilled Nursing ---
Discharge Inst-Skilled NF Patient Instructions Patient Problems: Postpolio paresis Urinary retention requiring self cath Urinary tract infection Acute on chronic kidney insufficiency Consult/Follow Up/Orders Skilled NF Admit to: [facility] Certification (SNF) I certify that SNF services are required to be given on an inpatient basis because of the above named patient's need for custodial care on a continuing basis for the conditions(s) for which he/she was receiving inpatient hospital services prior to his/her transfer to the SNF. [facility] Facility Order: Nursing Services, Physical Therapy-Evaluate & Treat Oxygen Delivery Method: Room Air New & Resume Previous Orders Diya Gil Nov 21, 2021 13:57 DIYA GIL MD Nov 21, 2021 13:59
--- NOTE | 2021-11-21 14:03 | Occ Therapy Progress Note ---
Therapy Progress Note Pt. in bed when OT enters room. Pt. needing to reposition self and so OT and pt. talk about that, including skin breakdown. Pt. independent with this skill and does so while OT in room. OT offers to assist pt. with basic ADL needs, and pt. begins to talk about home life. He states that all he needs right now is for OT to "listen" to him. Tells OT about his current situation at home with spouse, and being afraid of her. Pt. states that he feels that spouse does not intentionally do it, but is somewhat of a "director of student services" to him from previous issues they have had in their marriage. He states that his current power wheelchair has broken down, and he has no mode of transportation. Therefore, he is unable to move out of his bed, and his spouse will withhold food at times from him, and does not properly assist him with his hygiene needs. He states that when he has to be in bed, she then comments that he is doing it for attention. Pt. does state that his step daughter found him a new power wheelchair and so he does have that at home for him that he has not got to use yet. Pt. verbalizes that at discharge, he would like to go to a [facility], and does not want to return to his current home situation. Pt. states that he has spoken with a oncology social work here. OT did confirm this with nursing and reported pt's statements to nursing after talking with pt. OT told pt. that she would report his wishes on as well. Pt. in bed with all needs met when OT leaves room. [id number] 1, ADL x3 MALKA BAUER OT Nov 21, 2021 14:03
[2021-11-22 04:20] VITALS: BP 117/76
[2021-11-22 06:00] LABS: HEMATOCRIT 22 % (40-54); HEMOGLOBIN 7.2 g/dL (13.3-17.7); MEAN CORPUSCULAR HEMOGLOBIN 30 pg (25-34); MEAN CORPUSCULAR HGB CONC 32 g/dL (32-36); MEAN CORPUSCULAR VOLUME 95 fL (80-99); MEAN PLATELET VOLUME 9.1 fL (9.0-12.2); PLATELET COUNT 221 10^3/uL (130-400); WHITE BLOOD COUNT 5.2 10^3/uL (4.3-11.0)
[2021-11-22 06:17] LABS: POTASSIUM 4.1 MMOL/L (3.6-5.0)
[2021-11-22] MEDS: 1/2 NS IV SOLUTION 1,000 ML IV SCH (06:17)
[2021-11-22 06:19] LABS: CALCIUM 7.2 MG/DL (8.5-10.1)
[2021-11-22 06:23] LABS: CREATININE SERUM 2.2 MG/DL (0.60-1.30)
[2021-11-22 08:25] VITALS: BP 146/74
[2021-11-22] MEDS: LACTULOSE SYRUP 10GM/15ML (ENULOSE) 30ML UDC PO SCH ×3 (08:52→20:57)
[2021-11-22] MEDS: SODIUM BICARBONATE 650 MG TABLET (NON-FORMULARY) PO SCH ×3 (08:52→20:57)
[2021-11-22] MEDS: amLODIPine 5 MG (NORVASC) TAB PO SCH (08:52)
[2021-11-22] MEDS: DOCUSATE SODIUM 100 MG (COLACE) CAP PO SCH ×2 (08:52→20:57)
[2021-11-22] MEDS: SENNA W/DOCUSATE (SENOKOT S) TABLET PO SCH ×2 (08:52→20:57)
--- NOTE | 2021-11-22 08:57 | Physical Therapy Progress Note ---
Therapy Progress Note Patient declined OOB activities today. [facility] PT will be d/c from physical therapy services. SHEILA MICHEL PT Nov 22, 2021 08:57
[2021-11-22] MEDS: BISACODYL 10 MG SUPP (DULCOLAX) PR SCH (09:00)
[2021-11-22 12:01] VITALS: BP 141/79
[2021-11-22] MEDS: ENOXAPARIN 30 MG/0.3 ML (LOVENOX) SYR SC SCH (12:52)
[2021-11-22 15:30] VITALS: BP 109/77
--- NOTE | 2021-11-22 16:17 | Progress Note ---
Subjective Subjective/Events-last exam Doing okay, is emotionally upset about a conversation with his this morning. Having a lot of pain at the tip of his penis where catheter comes out. Objective Exam Last Set of Vital Signs Vital Signs Date Time Temp Pulse Resp B/P (MAP) Pulse Ox O2 Delivery O2 Flow Rate FiO2 11/22/21 12:01 37.2 65 20 141/79 (99) 100 Room Air 11/18/21 04:00 0.00 0.00 Capillary Refill : I&O Intake and Output 11/22/21 00:00 Intake Total 2090 ml Output Total 3275 ml Balance -1185 ml Intake Oral 2090 ml Output Urine Total 3275 ml # Bowel Movements 2 General: Alert, No Acute Distress Lungs: Clear to Auscultation, Normal Air Movement Heart: Regular Rate, No Murmurs Psych/Mental Status: Mood NL Other physical findings penis with mild erythema around urethra, no lesions Results/Procedures Lab Laboratory Tests 11/21/21 18:20: 11/21/21 20:03: Glucometer 135H 11/22/21 05:29: Glucometer 76 11/22/21 05:45: White Blood Count 5.2, Red Blood Count 2.37L, Hemoglobin 7.2L, Hematocrit 22L, Mean Corpuscular Volume 95, Mean Corpuscular Hemoglobin 30, Mean Corpuscular Hemoglobin Concent 32, Red Cell Distribution Width 14.1, Platelet Count 221, Mean Platelet Volume 9.1, Sodium Level 137, Potassium Level 4.1, Chloride Level 111H, Carbon Dioxide Level 15L, Anion Gap 11, Blood Urea Nitrogen 47H, Creatinine 2.20H, Estimat Glomerular Filtration Rate 32, BUN/Creatinine Ratio 21, Glucose Level 81, Calcium Level 7.2L 11/22/21 11:43: Glucometer 86 Microbiology 11/16/21 Urine Culture - Final, Complete Mixed Bacterial Stefani Assessment/Plan Assessment/Plan Assessment & Plan UTI resistant organism suspected- started on cefepime and linezolid, will narrow to cefepime only today 11/20- culture with mixed bacteria, continue current antibiotics. 2- cefepime day 5 2- cefepime day 6 Urinary retention performs own self caths at home 2- guaman is causing irritation, will d/c, and if he has retention, discussed we can resume intermittent straight cath or try replacing guaman for nursing facility stay if he prefers. Post polio syndrome wheelchair bound- plan to d/c to SNF when available HTN- history of being on lisinopril, not taking meds prior to admit, monitor and start antihypertensive as needed 2/- add amlodipine 5 mg daily CKD- uncertain baseline suspect acute on CKD, last clinic labs May 2020 with cr 1.36 2- continued slow improvement /- Cr trending down still 11/22- improved slightly BPH Metabolic acidosis chronic due to CKD- started on sodium bicarb with improvement in CO2 Anemia severe suspect secondary to CKD, s/p 1 unit Left abdominal mass- CT unrevealing, ultrasound with no acute abnormalities, stool seen in intestines; use aggressive bowel regimen DVT ppx- enoxaparin Disp- planning discharge to SNF as soon as spot available, awaiting COVID testing. DIYA BROWN MD Nov 22, 2021 16:17
[2021-11-22 20:00] VITALS: BP 130/64
[2021-11-22] MEDS ORDERED: LIDOCAINE UROJET 2% GEL 10 ML PKG TOP ONE (22:00)
[2021-11-23 00:35] VITALS: BP 147/75
[2021-11-23 04:29] VITALS: BP 147/70
[2021-11-23] MEDS: SODIUM BICARBONATE 650 MG TABLET (NON-FORMULARY) PO SCH ×2 (08:56→12:40)
[2021-11-23] MEDS: DOCUSATE SODIUM 100 MG (COLACE) CAP PO SCH (08:56)
[2021-11-23] MEDS: SENNA W/DOCUSATE (SENOKOT S) TABLET PO SCH (08:56)
[2021-11-23] MEDS: amLODIPine 5 MG (NORVASC) TAB PO SCH (08:56)
[2021-11-23] MEDS: BISACODYL 10 MG SUPP (DULCOLAX) PR SCH (08:57)
[2021-11-23] MEDS: LACTULOSE SYRUP 10GM/15ML (ENULOSE) 30ML UDC PO SCH ×2 (08:57→12:40)
[2021-11-23 08:59] VITALS: BP 145/73
[2021-11-23] MEDS: ENOXAPARIN 30 MG/0.3 ML (LOVENOX) SYR SC SCH (12:40)
[2021-11-23 12:47] VITALS: BP 155/92
[2021-11-23] MEDS ORDERED: LIDOCAINE UROJET 2% GEL 10 ML PKG ONE (12:52)
[2021-11-23] MEDS ORDERED: LIDOCAINE UROJET 2% GEL 10 ML PKG TOP ONE (13:00)
[2021-11-23 14:45] VITALS: BP 155/92
--- NOTE | 2021-11-23 16:43 | Discharge Summary ---
Discharge Summary Hospital Course Hospital Course Date of Admission: Nov 17, 2021 at 01:00 Admission Diagnosis : UTI Urinary retention performs own self caths at home Post polio syndrome wheelchair bound HTN CKD BPH Metabolic acidosis chronic due to CKD Anemia severe suspect secondary to CKD Family Physician/Provider: Andrea Milian MD Date of Discharge: 11/23/21 Discharge Diagnosis: UTI resistant organism suspected- started on cefepime and linezolid, will narrow to cefepime only today, received 6+ days of cefepime, discharged with 2 further days of cefdinir as culture had mixed bacteria. Urinary retention performs own self caths at home- attempted to d/c guaman, had recurrent retention, straight cath x 1, he decided he would prefer to replace guaman for now and discussed consideration of Urology referral for possible suprapubic catheter eventually Post polio syndrome wheelchair bound- discharged to SNF HTN- history of being on lisinopril, not taking meds prior to admit, started amlodipine inpatient due to elevated BP CKD- uncertain baseline suspect acute on CKD, last clinic labs May 2020 with cr 1.36; creatinine trended down over stay, at 2.2 on d/c. BPH Metabolic acidosis chronic due to CKD- started on sodium bicarb with improvement in CO2 Anemia severe suspect secondary to CKD, s/p 1 unit Left abdominal mass- CT unrevealing, ultrasound with no acute abnormalities, stool seen in intestines; use aggressive bowel regimen Hospital Course: See discharge diagnoses Labs and Pending Lab Test: Laboratory Tests 11/22/21 20:25: Glucometer 137H 11/23/21 00:25: Glucometer 85 11/23/21 10:50: Glucometer 94 Microbiology 11/16/21 Urine Culture - Final, Complete Mixed Bacterial Stefani Home Meds Active Stool Softener-Laxative Tablet (Sennosides/Docusate Sodium) 1 Each Tablet 2 Ea PO BID Sodium Bicarbonate 650 Mg Tablet 650 Mg PO TID Lactulose 20 Gm/30 Ml Solution 10 Gm PO TID PRN Amlodipine Besylate 5 Mg Tablet 5 Mg PO DAILY Cefdinir 300 Mg Capsule 300 Mg PO BID 2 Days Assessment/Pt DC Instructions Follow up with primary doctor after SNF Discharge Diet: ADA Diet Activity as Tolerated: Yes Discharge Physical Examination Allergies: Coded Allergies: aspirin (Verified Allergy, Unknown, 12/17/19) General Appearance: No Apparent Distress Respiratory: Lungs Clear, Normal Breath Sounds Cardiovascular: Regular Rate, Rhythm, No Murmur Neurologic/Psychiatric: Alert, Normal Mood/Affect DIYA BROWN MD Nov 23, 2021 16:43
== END 2021-11-23 14:45 | DRG 698 ==
LOC: EDUNIT# 23:24 → ER 23:30 → 4TH 11-17 01:00
PROVIDERS: ADMIT Internal Medicine; ATTEND Family Medicine
DX: T83.518A Infection and inflammatory reaction due to other urinary catheter, initial encounter (principal); A41.9 Sepsis, unspecified organism; N39.0 Urinary tract infection, site not specified; N17.9 Acute kidney failure, unspecified; E87.2 Acidosis; E86.0 Dehydration; N18.9 Chronic kidney disease, unspecified; I12.9 Hypertensive chronic kidney disease with stage 1 through stage 4 chronic kidney disease, or unspecified chronic kidney disease; N40.1 Benign prostatic hyperplasia with lower urinary tract symptoms; R33.8 Other retention of urine; D63.1 Anemia in chronic kidney disease; R19.00 Intra-abdominal and pelvic swelling, mass and lump, unspecified site; Z20.822 Contact with and (suspected) exposure to COVID-19; E11.22 Type 2 diabetes mellitus with diabetic chronic kidney disease; Z87.891 Personal history of nicotine dependence; Z86.12 Personal history of poliomyelitis
CPT/HCPCS: 36415; 74176; 76999; 80048; 80053; 81000; 82805; 82947; 83036; 83605; 84145; 84443; 84484; 85025; 85027; 86141; 86850; 86900; 86901; 86920; 87088; 87635; 93005